=== PATIENT | female | born 1955 | race Caucasian/White ===

== ENCOUNTER 2019-01-31 09:00 | Inpatient (IN) | payer OTHER, SELFPAY ==
[2019-01-31] VITALS (11 sets, daily range): BP systolic 89–153; BP diastolic 47–82; PULSE 87–135; RESP 15–24; TEMP 36.6–38.2; O2SAT 86–98; BMI 30.7
--- NOTE | 2019-01-31 09:19 | ED_ITS ---
HPI - Fever General Chief Complaint: Fever Stated Complaint: left hip cellulitis/fever/pain x1 day Time Seen by Provider: 01/31/19 09:11 Source: patient Mode of arrival: Ambulatory Limitations: no limitations History of Present Illness HPI Narrative: Patient is a 64-year-old female here for evaluation which she thinks is cellulitis in her left hip. States she went to bed last evening without any symptoms. Woke up at about 0300 hours in the morning with pain and fevers. They did outline the redness with a marker. She woke up this morning and thought that the redness had spread. She did take a Tylenol at home in the evening. She does have penicillin at home. She has seen Infectious Disease in the past for recurrent cellulitis. She states it is normally not in this area but is more in her left leg. The penicillin was given to her by Infectious Disease because they ?like to travel ?and they wanted them to have medications to start in case symptoms like this happen. She has no hip pain. Does have a history of uterine cancer however has not had any treatment since 2012 and has been in remission. Earlier this year she had an ?ablation ?due to a ?leaky vein ?in her left leg. Related Data Home Medications Medication Instructions Recorded Confirmed omeprazole 20 mg PO QAM 01/31/19 01/31/19 penicillin V potassium 500 mg PO Q12H 01/31/19 01/31/19 Allergies Allergy/AdvReac Type Severity Reaction Status Date / Time adhesive tape Allergy Verified 01/31/19 09:09 Review of Systems Constitutional Constitutional: Reports fever(s) Cardiovascular Cardiovascular: Denies chest pain, Reports palpitations and Denies dyspnea Respiratory Respiratory: Denies dyspnea Gastrointestinal Gastrointestinal: Denies abdominal pain Musculoskeletal Musculoskeletal: Denies myalgias and Denies arthralgias Integumentary/Breasts Comments: Redness to left hip Neurologic Neurologic: Denies behavioral changes Psychiatric Psychiatric: Denies behavioral changes Endocrine Endocrine: Reports palpitations Hematologic/Lymphatic Hematologic/Lymphatic: Denies easy bleeding and Denies easy bruising Patient History Medical History (Updated 01/31/19 @ 10:42 by Jeremias Bella DO) Uterine cancer (Acute) Surgical History H/O bilateral oophorectomy (Acute) History of hysterectomy (Acute) Social History marital status: Exam Initial Vital Signs Initial Vital Signs: Vital Signs Temperature 100.7 F H 01/31/19 09:09 Pulse Rate 135 H 01/31/19 09:09 Respiratory Rate 20 01/31/19 09:09 Blood Pressure 153/82 H 01/31/19 09:09 Pulse Oximetry 97 01/31/19 09:09 Const General: cooperative, healthy appearing and comfortable HENMI Head: normal to inspection and normocephalic Resp Effort & Inspection: normal respiratory effort Auscultation: clear to auscultation bilaterally Cardio Rate: tachycardic Rhythm: regular rhythm GI Inspection: non-distended Palpation: soft Skin Other: Patient has a large area of redness in the fold of the pannus on the left lower abdomen. It does extend to the very superior portion of the left thigh. It does cross midline. Neuro General: alert and awake Cognition: normal cognition Speech: speech normal Extrem General: normal to inspection and capillary refill normal Psych Appearance: grossly normal and well kempt Course Orders Ordered: ED Orders 01/31/19 09:12 EKG-12 Lead Stat 01/31/19 09:30 Complete Blood Count AUTO DIFF Stat Comprehensive Metabolic Panel Stat Lactate (Lactic Acid) Stat Lipase Stat Procalcitonin Stat 01/31/19 09:50 Blood Culture Stat 01/31/19 11:00 CT abdomen pelvis w con Stat Discontinued Medications Acetaminophen (Tylenol) 650 mg PO NOW ONE Stop: 01/31/19 10:21 Last Admin: 01/31/19 10:22 Dose: 650 mg Documented by: MAAME Sodium Chloride (Normal Saline 0.9%) 1,000 mls @ 1,000 mls/hr IV BOLUS ONE Stop: 01/31/19 10:10 Last Infusion: 01/31/19 10:51 Dose: 1,000 mls/hr Documented by: Infusion: 01/31/19 09:45 Dose: 300 mls/hr Documented by: Admin: 01/31/19 09:44 Dose: 1,000 mls/hr Documented by: MAAME Vancomycin HCl (Vancomycin) 1,000 mg in 200 mls @ 200 mls/hr IV NOW ONE Stop: 01/31/19 10:41 Last Infusion: 01/31/19 10:49 Dose: 0 mls/hr Documented by: Admin: 01/31/19 09:46 Dose: 200 mls/hr Documented by: SCANAPO Vital Signs Vital signs: Vital Signs - 8 hr 01/31/19 09:09 01/31/19 10:14 01/31/19 10:35 Temperature 100.7 F H Pulse Rate 135 H 119 H 110 H Respiratory Rate 20 15 Blood Pressure 153/82 H Blood Pressure [Right Arm] 121/68 99/59 L Pulse Oximetry 97 95 93 MDM - Fever Lab Data Attestation: I reviewed the patient's lab results. Result diagrams: 01/31/19 09:30 01/31/19 09:30 Labs: Lab Results 01/31/19 01/31/19 01/31/19 Range/Units 09:30 09:30 09:30 WBC 13.1 H (4.5-11.0) X10^3/uL RBC 5.02 (4.0-5.2) X10^6/uL Hgb 15.1 (12.0-16.0) g/dL Hct 45.1 (36-46) % MCV 89.9 (80-100) fL MCH 30.1 (26-34) PG MCHC 33.4 (30-36) % RDW 13.8 (11.6-14.8) % Plt Count 192 (150-400) X10^3/uL Neut % (Auto) 94.8 H (50-75) % Lymph % (Auto) 2.5 L (25-40) % [place] % (Auto) 2.1 L (3-14) % Eos % (Auto) 0.2 L (2-4) % Baso % (Auto) 0.4 (0-2) % Neut # (Auto) 24161 H (3143-4347) /uL Lymph # (Auto) 300 L (5240-3904) /uL [place] # (Auto) 300 (0-900) /uL Eos # (Auto) 0 (0-450) /uL Baso # (Auto) 100 (0-100) /uL Sodium 139 (137-145) mmol/L Potassium 4.4 (3.4-5.1) mmol/L Chloride 101 (98-107) mmol/L Carbon Dioxide 25 (22-32) mmol/L BUN 19 H (7-17) mg/dL Creatinine 0.60 (0.52-1.04) mg/dL Estimated GFR > 60.0 (>60) mL/min BUN/Creatinine Ratio 31.7 H (6-22) Glucose 120 H (80-110) mg/dL Lactate (0.7-2.1) mmol/L Calcium 9.9 (8.4-10.2) mg/dL Total Bilirubin 0.7 (0.2-1.3) mg/dL AST 48 H (14-36) IU/L ALT 24 (9-52) IU/L Alkaline Phosphatase 85 (38-126) U/L Total Protein 8.0 (6.3-8.2) g/dL Albumin 4.6 (3.5-5.0) g/dL Globulin 3.4 (1.7-4.1) g/dL Albumin/Globulin Ratio 1.4 (1.0-2.8) Lipase 76 (23-300) U/L Procalcitonin 0.10 (<0.5) ng/mL 01/31/19 Range/Units 09:30 WBC (4.5-11.0) X10^3/uL RBC (4.0-5.2) X10^6/uL Hgb (12.0-16.0) g/dL Hct (36-46) % MCV (80-100) fL MCH (26-34) PG MCHC (30-36) % RDW (11.6-14.8) % Plt Count (150-400) X10^3/uL Neut % (Auto) (50-75) % Lymph % (Auto) (25-40) % [place] % (Auto) (3-14) % Eos % (Auto) (2-4) % Baso % (Auto) (0-2) % Neut # (Auto) (2325-2908) /uL Lymph # (Auto) (3851-2607) /uL [place] # (Auto) (0-900) /uL Eos # (Auto) (0-450) /uL Baso # (Auto) (0-100) /uL Sodium (137-145) mmol/L Potassium (3.4-5.1) mmol/L Chloride (98-107) mmol/L Carbon Dioxide (22-32) mmol/L BUN (7-17) mg/dL Creatinine (0.52-1.04) mg/dL Estimated GFR (>60) mL/min BUN/Creatinine Ratio (6-22) Glucose (80-110) mg/dL Lactate 3.3 H (0.7-2.1) mmol/L Calcium (8.4-10.2) mg/dL Total Bilirubin (0.2-1.3) mg/dL AST (14-36) IU/L ALT (9-52) IU/L Alkaline Phosphatase (38-126) U/L Total Protein (6.3-8.2) g/dL Albumin (3.5-5.0) g/dL Globulin (1.7-4.1) g/dL Albumin/Globulin Ratio (1.0-2.8) Lipase (23-300) U/L Procalcitonin (<0.5) ng/mL Imaging Data CT scan - abdomen: Radiologist's impression: [place] [address] CT Scan Report Signed Patient: Velma Clay EMR#: [id number] : 7Acct:[id number] Age/Sex: 64 / FDate of Service: 01/31/19 Loc: ED Accession Number: [id number] Procedure: CT abdomen pelvis w con Ordering Provider: Jeremias Bella D.O. PROCEDURE: CT ABDOMEN PELVIS W CON INDICATIONS: Left lower abdomen, rapidly progressing cellulitis evaluate for gas in the soft tissues. Clinically reported prior history of uterine carcinoma. TECHNIQUE: After the administration of intravenous contrast, 5 mm thick sections acquired from the diaphragm to the symphysis. 5 mm coronal and sagittal reformats were acquired. For radiation dose reduction, the following was used: automated exposure control, adjustment of mA and/or kV according to patient size. COMPARISON: None. FINDINGS: Image quality: Excellent. ABDOMEN: Lung bases: Lung bases are clear. Heart size is normal. No pulmonary masses found. Solid organs: Liver is normal in size and enhancement. Several scattered small hepatic cysts. No solid hepatic mass lesion found. Gallbladder appears normal. Biliary system is non dilated. Pancreas enhances normally. Spleen is normal in size and enhancement. No adrenal nodules. Kidneys demonstrate normal size and enhancement, without hydronephrosis. 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 Peritoneum and bowel: Bowel loops demonstrate normal wall thickness and caliber. No free fluid or air. Nodes and vessels: No retroperitoneal or mesenteric adenopathy by size criteria. Aorta and inferior vena cava are normal in size. Miscellaneous: No ventral hernias. PELVIS: Genitourinary: Bladder wall thickness is normal. Uterus and ovaries not visualized, several surgical clips noted right lower pelvis. Miscellaneous: No inguinal hernias or adenopathy. A small area of mural thickening is noted at the lower anterior pelvic ventral body wall at the midline. There is slightly greater cutaneous thickness on the left than the right superficial to the left hip area. No gas in the soft tissues is found. No underlying abscess is identified. Slight edema is seen within the fatty soft tissues superficial to the superficial muscular layer and bursal region of the left hip. No bursal inflammation or abnormal fluid seen. Bones: No suspicious bony lesions. No vertebral body compression fractures. IMPRESSION: Mild edema within the body wall of the anterior ventral and left hip region of the pelvis. No gas in the soft tissue seen. No deep abscess identified. Cellulitis is the presumed cause in this clinical circumstance. Through the lower chest, abdomen and pelvis no additional abnormality is seen that would indicate infection elsewhere. 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 Dictated by: Osorio Zamora M.D. on 01/31/2019 at 11:31 Approved by: Osorio Zamora M.D. on 01/31/2019 at 11:37 ECG Data Attestation: I personally reviewed and interpreted this ECG as follows: Prior ECG tracings: not available for review Interpretation: Sinus tachycardia Ventricular rate of 113 Normal axis Normal QRS Normal QTC No ST T wave changes MDM Narrative Medical decision making narrative: Patient does have left lower abdomen cellulitis. Does not have pain out of proportion. There is no crepitus to the area however it has extended outside the lines that she marked at approximately 0200 hours in the morning. She was tachycardic and febrile upon arrival. Has had these symptoms in the past. She was given vancomycin here in the ER. Blood cultures were obtained. CT scan was obtained to evaluate for free air in a evaluation for potential necrotizing fasciitis given the progression of the process. I do have low suspicion for this given her workup here in the ER. I did discuss the case with Dr. Rhodes who will admit for further evaluation treatment. Discussed the admission with the patient expressed understanding and agreement. Discharge Plan Departure Patient Disposition: Admitted As Inpatient Clinical Impression: Cellulitis Qualifiers: Site of cellulitis: unspecified site Qualified Code(s): L03.90 - Cellulitis, unspecified
[2019-01-31] MEDS: SODIUM CHLORIDE 0.9% 1,000 ML 1000 ML IV (09:44)
[2019-01-31] MEDS: VANCOMYCIN 1,000 MG/200 ML PIGGYBACK 200 MG IV (09:46)
[2019-01-31 09:49] LABS: Add Manual Diff / Slide Review NO; Basophils Absolute Auto 100 /uL (0-100); Basophils Percent Auto 0.4 % (0-2); Eosinophils Absolute Auto 0 /uL (0-450); Eosinophils Percent Auto 0.2 % (2-4); Hematocrit 45.1 % (36-46); Hemoglobin 15.1 g/dL (12.0-16.0); Lymphocytes Absolute Auto 300 /uL (1100-4500); Lymphocytes Percent Auto 2.5 % (25-40); Mean Corpuscular HGB Conc 33.4 % (30-36); Mean Corpuscular Hemoglobin 30.1 PG (26-34); Mean Corpuscular Volume 89.9 fL (80-100); Monocytes Absolute Auto 300 /uL (0-900); Monocytes Percent Auto 2.1 % (3-14); Neutrophils Absolute Auto 12500 /uL (1500-7000); Neutrophils Percent Auto 94.8 % (50-75); Platelet Count 192 X10^3/uL (150-400); Red Blood Cell Count 5.02 X10^6/uL (4.0-5.2); Red Cell Distribution Width 13.8 % (11.6-14.8); White Blood Cell Count 13.1 X10^3/uL (4.5-11.0)
[2019-01-31 10:04] LABS: Alanine Aminotransferase 24 IU/L (9-52); Albumin 4.6 g/dL (3.5-5.0); Albumin Globulin Ratio 1.4 (1.0-2.8); Alkaline Phosphatase 85 U/L (38-126); Aspartate Aminotransferase 48 IU/L (14-36); BUN Creatinine Ratio 31.7 (6-22); Bilirubin Total 0.7 mg/dL (0.2-1.3); Blood Urea Nitrogen 19 mg/dL (7-17); Calcium 9.9 mg/dL (8.4-10.2); Carbon Dioxide 25 mmol/L (22-32); Chloride 101 mmol/L (98-107); Estimated Glomerular Filt Rate > 60.0 mL/min (>60); Globulin 3.4 g/dL (1.7-4.1); Glucose 120 mg/dL (80-110); HEMOLYSIS 66 (0-50); Lipase 76 U/L (23-300); Potassium 4.4 mmol/L (3.4-5.1); Sodium 139 mmol/L (137-145)
[2019-01-31 10:07] LABS: Lactate (Lactic Acid) 3.3 mmol/L (0.7-2.1)
[2019-01-31] MEDS: ACETAMINOPHEN 325 MG TABLET 650 MG PO (10:22)
--- NOTE | 2019-01-31 11:00 | DI.CT.S_ITS ---
PROCEDURE: CT ABDOMEN PELVIS W CON INDICATIONS: Left lower abdomen, rapidly progressing cellulitis evaluate for gas in the soft tissues. Clinically reported prior history of uterine carcinoma. TECHNIQUE: After the administration of intravenous contrast, 5 mm thick sections acquired from the diaphragm to the symphysis. 5 mm coronal and sagittal reformats were acquired. For radiation dose reduction, the following was used: automated exposure control, adjustment of mA and/or kV according to patient size. COMPARISON: None. FINDINGS: Image quality: Excellent. ABDOMEN: Lung bases: Lung bases are clear. Heart size is normal. No pulmonary masses found. Solid organs: Liver is normal in size and enhancement. Several scattered small hepatic cysts. No solid hepatic mass lesion found. Gallbladder appears normal. Biliary system is non dilated. Pancreas enhances normally. Spleen is normal in size and enhancement. No adrenal nodules. Kidneys demonstrate normal size and enhancement, without hydronephrosis. 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 Peritoneum and bowel: Bowel loops demonstrate normal wall thickness and caliber. No free fluid or air. Nodes and vessels: No retroperitoneal or mesenteric adenopathy by size criteria. Aorta and inferior vena cava are normal in size. Miscellaneous: No ventral hernias. PELVIS: Genitourinary: Bladder wall thickness is normal. Uterus and ovaries not visualized, several surgical clips noted right lower pelvis. Miscellaneous: No inguinal hernias or adenopathy. A small area of mural thickening is noted at the lower anterior pelvic ventral body wall at the midline. There is slightly greater cutaneous thickness on the left than the right superficial to the left hip area. No gas in the soft tissues is found. No underlying abscess is identified. Slight edema is seen within the fatty soft tissues superficial to the superficial muscular layer and bursal region of the left hip. No bursal inflammation or abnormal fluid seen. Bones: No suspicious bony lesions. No vertebral body compression fractures. IMPRESSION: Mild edema within the body wall of the anterior ventral and left hip region of the pelvis. No gas in the soft tissue seen. No deep abscess identified. Cellulitis is the presumed cause in this clinical circumstance. Through the lower chest, abdomen and pelvis no additional abnormality is seen that would indicate infection elsewhere. 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 Dictated by: Osorio Zamora M.D. on 01/31/2019 at 11:31 Approved by: Osorio Zamora M.D. on 01/31/2019 at 11:37
[2019-01-31 11:44] LABS: Reflexed Lactate in 2 Hours Y
[2019-01-31 12:31] LABS: Lactate 2HR (Lactic Acid Rflx) 2.2 mmol/L (0.7-2.1)
[2019-01-31] MEDS: KETOROLAC 30 MG/ML VIAL IV (12:59)
--- NOTE | 2019-01-31 13:03 | RT ---
Patient placed on 2L NC. Oxygen level dropping to 86% on room air when sleeping.
--- NOTE | 2019-01-31 14:58 | PC.NURSE ---
1330 Pt arrived from ED , via stretcher. Pt is A,A,O x 4. Has sl to the L fa. Spouse at bedside. Pt noted to haved redened L thigh up to L side lower abd, Spouse outlined the area this am at home. 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 Pt states this is the 6th time for this same cellulitis.
--- NOTE | 2019-01-31 15:07 | P.HP_ITS ---
History of Present Illness History of Present Illness Date Patient Seen: 01/31/19 Chief complaint: left hip cellulitis/fever/pain x1 day Narrative: The patient is a 64-year-old female with a history of uterine cancer status post hysterectomy in 2011, GERD, laser surgery to the left lower e xtremity, chronic lymphedema, recurrent cellulitis who presents again for abrupt onset of cellulitis that started 1 day prior to admission. Patient reports she has had 6 episodes a cellulitis over the past 6 years. She typically gets 1 episode per year. She has been followed by infectious disease specialist at [facility]. After her last episode of cellulitis she was given a dose of penicillin to start at the onset of redness and suggestion of cellulitis patient stated she developed some redness along the abdomen last evening. She took 1 dose of cellulitis however this morning found that the redness had spread to her thigh from her abdomen. The patient reports fever to 104, headache, but no nausea vomiting or diarrhea. She was seen in the emergency department. She was found to have an elevated white count of 13, lactate acid elevated at 3.3 and a procalcitonin of 0.01. Patient is admitted to the hospital for treatment of recurrent cellulitis. Patient History Medical History (Updated 01/31/19 @ 15:16 by Jolanta Rhodes MD) Uterine cancer (Acute) Surgical History H/O bilateral oophorectomy (Acute) H/O parathyroidectomy (Acute) History of hysterectomy (Acute) Family History (Updated 01/31/19 @ 15:16 by Jolanta Rhodes MD) Father Diabetes mellitus Social History marital status: household members: spouse Smoking Status: Never smoker alcohol intake: current Family & Social History Family History (Updated 01/31/19 @ 15:16 by Jolanta Rhodes MD) Father Diabetes mellitus Social History: household members spouse Prior Living Arrangements House Safety & Behavioral: Feels Safe in Current Yes Environment Been Physically Hurt or No Threatened By a Person Suicidal Ideation Description None Suicide Plan Description No Plan Tobacco & Substance use: Smoking Status Never smoker alcohol intake current alcohol intake frequency a few times a week Substance Use Type does not use Meds Home Medications and Allergies Home Medications Medication Instructions Recorded Confirmed Type omeprazole 20 mg PO QAM 01/31/19 01/31/19 History penicillin V potassium 500 mg PO Q12H 01/31/19 01/31/19 History Allergies Allergy/AdvReac Type Severity Reaction Status Date / Time adhesive tape Allergy Verified 01/31/19 09:09 Review of Systems Review of Systems ROS Unobtainable: All systems reviewed & are unremarkable except as noted in HPI and below Exam Vital Signs (past 8 hours): - 01/31/19 09:09 01/31/19 10:14 01/31/19 10:35 Temperature 100.7 F H Pulse Rate 135 H 119 H 110 H Respiratory Rate 20 15 Blood Pressure 153/82 H Blood Pressure [Right Arm] 121/68 99/59 L Pulse Oximetry 97 95 93 01/31/19 11:45 01/31/19 12:00 01/31/19 12:29 Temperature 99.3 F Pulse Rate 104 H 99 H Respiratory Rate 19 24 Blood Pressure Blood Pressure [Right Arm] 89/47 L 93/51 L Pulse Oximetry 93 93 01/31/19 12:52 01/31/19 13:02 Temperature Pulse Rate 97 H Respiratory Rate 16 Blood Pressure Blood Pressure [Right Arm] 94/57 L Pulse Oximetry 94 86 L Oxygen Delivery Method Room Air Narrative Exam Narrative: Pleasant female resting comfortably in no obvious distress HEENT: Normocephalic atraumatic, extraocular muscles are intact, oropharynx is clear, there are moist mucous membranes, neck is supple, there is no adenopathy, no thyromegaly, there is a well-healed parathyroid to ectomy scar. Lungs: Clear to auscultation, no rhonchi crackles or wheezes Cardiac exam: Tachycardic, normal S1-S2, no murmurs rubs or gallops Abdomen: Soft nontender nondistended, no hepatosplenomegaly, will healed surgical suprapubic incision, no board-like rigidity, normoactive bowel tones Extremities: No clubbing cyanosis or edema Skin exam: Erythema along the abdomen and left flank, there is redness along the suprapubic area, there is lytes scant redness going down the left anterior thigh, there is no fluctuance there are no palpable masses, there is no evidence of fluid collections, there is no ulcerations, there are no streaking noted Neuro exam nonfocal Objective Labs Result Diagrams: 01/31/19 09:30 01/31/19 09:30 Labs: Laboratory Results - last 24 hr 01/31/19 01/31/19 01/31/19 09:30 09:30 09:30 WBC 13.1 H RBC 5.02 Hgb 15.1 Hct 45.1 MCV 89.9 MCH 30.1 MCHC 33.4 RDW 13.8 Plt Count 192 Neut % (Auto) 94.8 H Lymph % (Auto) 2.5 L [place] % (Auto) 2.1 L Eos % (Auto) 0.2 L Baso % (Auto) 0.4 Neut # (Auto) 37420 H Lymph # (Auto) 300 L [place] # (Auto) 300 Eos # (Auto) 0 Baso # (Auto) 100 Sodium 139 Potassium 4.4 Chloride 101 Carbon Dioxide 25 BUN 19 H Creatinine 0.60 Estimated GFR > 60.0 BUN/Creatinine Ratio 31.7 H Glucose 120 H Lactate Calcium 9.9 Total Bilirubin 0.7 AST 48 H ALT 24 Alkaline Phosphatase 85 Total Protein 8.0 Albumin 4.6 Globulin 3.4 Albumin/Globulin Ratio 1.4 Lipase 76 Procalcitonin 0.10 01/31/19 01/31/19 09:30 11:55 WBC RBC Hgb Hct MCV MCH MCHC RDW Plt Count Neut % (Auto) Lymph % (Auto) [place] % (Auto) Eos % (Auto) Baso % (Auto) Neut # (Auto) Lymph # (Auto) [place] # (Auto) Eos # (Auto) Baso # (Auto) Sodium Potassium Chloride Carbon Dioxide BUN Creatinine Estimated GFR BUN/Creatinine Ratio Glucose Lactate 3.3 H 2.2 H Calcium Total Bilirubin AST ALT Alkaline Phosphatase Total Protein Albumin Globulin Albumin/Globulin Ratio Lipase Procalcitonin Assessment & Plan Assessment & Plan narrative: Impression 1. Severe sepsis, manifested as elevated white count, tachycardia, hypoxemia, elevated lactate, and skin infection. The patient has had recurrent episodes at least 6 of cellulitis typically involving her left lower extremity. She now has cellulitis of the abdomen progressing to the left thigh. The patient took 1 dose of penicillin at home with spreading of the infection. She was started on IV Vanco in the emergency department. Ceftriaxone will be added to the regimen. The patient is on oxygen as she was hypoxic in the emergency department. Will continue her oxygen and obtain a chest x-ray to rule out possible infiltrate. Awaiting procalcitonin. Will repeat lactate. Will continue IV antibiotics. 2. GERD, present on admission, continue omeprazole 3. History of uterine cancer, status post surgery, and a This is chronic. Patient is a full code, will note that her record accordingly Quality VTE Deep Vein Thrombosis/Pulmonary Embolism Present on Admission: No
[2019-01-31] MEDS: CEFTRIAXONE 2 GM/50 ML FROZ.PIGGY IV (16:13)
[2019-01-31 16:56] LABS: Lactate (Lactic Acid) 2.3 mmol/L (0.7-2.1)
[2019-01-31 17:39] LABS: Add Manual Diff / Slide Review NO; Basophils Absolute Auto 0 /uL (0-100); Basophils Percent Auto 0.2 % (0-2); Eosinophils Absolute Auto 0 /uL (0-450); Hematocrit 41.5 % (36-46); Hemoglobin 13.8 g/dL (12.0-16.0); Lymphocytes Absolute Auto 500 /uL (1100-4500); Lymphocytes Percent Auto 2.5 % (25-40); Mean Corpuscular HGB Conc 33.3 % (30-36); Mean Corpuscular Volume 89.8 fL (80-100); Monocytes Absolute Auto 600 /uL (0-900); Monocytes Percent Auto 2.9 % (3-14); Neutrophils Absolute Auto 20400 /uL (1500-7000); Neutrophils Percent Auto 94.4 % (50-75); Platelet Count 184 X10^3/uL (150-400); Red Blood Cell Count 4.62 X10^6/uL (4.0-5.2); Red Cell Distribution Width 13.9 % (11.6-14.8); White Blood Cell Count 21.6 X10^3/uL (4.5-11.0)
[2019-01-31 17:46] LABS: BUN Creatinine Ratio 27.1 (6-22); Blood Urea Nitrogen 19 mg/dL (7-17); Calcium 8.8 mg/dL (8.4-10.2); Carbon Dioxide 24 mmol/L (22-32); Chloride 100 mmol/L (98-107); Estimated Glomerular Filt Rate > 60.0 mL/min (>60); Glucose 116 mg/dL (80-110); HEMOLYSIS < 15 (0-50); Potassium 4.1 mmol/L (3.4-5.1); Sodium 136 mmol/L (137-145)
[2019-01-31 18:41] LABS: Reflexed Lactate in 2 Hours Y
[2019-01-31] MEDS: IBUPROFEN 600 MG TABLET PO (18:58)
[2019-01-31 19:13] LABS: Lactate 2HR (Lactic Acid Rflx) 1.8 mmol/L (0.7-2.1)
[2019-01-31] MEDS: VANCOMYCIN 1,500 MG/300 ML FROZ.PIGGY 200 MG IV (21:42)
[2019-02-01] VITALS (12 sets, daily range): BP systolic 94–134; BP diastolic 53–74; PULSE 62–83; RESP 12–16; TEMP 36.8–38.2; O2SAT 92–100
[2019-02-01] MEDS: ACETAMINOPHEN 325 MG TABLET 650 MG PO ×2 (03:38→18:33)
[2019-02-01] MEDS: PANTOPRAZOLE 20 MG TABLET PO (06:00)
[2019-02-01] MEDS: IBUPROFEN 600 MG TABLET PO ×2 (06:00→20:31)
[2019-02-01 06:54] LABS: Procalcitonin 7.43 ng/mL (<0.5)
[2019-02-01] MEDS: DOCUSATE 100 MG CAPSULE PO ×2 (08:27→20:29)
[2019-02-01] MEDS: ENOXAPARIN 40 MG/0.4 ML SYRINGE SUBCUT (08:27)
[2019-02-01] MEDS: VANCOMYCIN 1,500 MG/300 ML FROZ.PIGGY 200 MG IV ×2 (08:27→20:37)
--- NOTE | 2019-02-01 09:01 | PC.NURSE ---
Late entry. Pt arrived via ED accompanied by to room 205 at 13:30. Pt was settled to bed, instructed on phone room and call light. VSS. Left groin was examined and during report to [place] discussed taking photos of area had marked. Pt up to BR with CARLOS ALBERTO CASTELLANOS. Pt offers no c/o at present.
[2019-02-01 09:41] LABS: Add Manual Diff / Slide Review NO; Basophils Absolute Auto 0 /uL (0-100); Basophils Percent Auto 0.4 % (0-2); Eosinophils Absolute Auto 0 /uL (0-450); Eosinophils Percent Auto 0.1 % (2-4); Hematocrit 40.8 % (36-46); Hemoglobin 13.6 g/dL (12.0-16.0); Lymphocytes Absolute Auto 500 /uL (1100-4500); Lymphocytes Percent Auto 4.4 % (25-40); Mean Corpuscular HGB Conc 33.4 % (30-36); Mean Corpuscular Hemoglobin 30.2 PG (26-34); Mean Corpuscular Volume 90.4 fL (80-100); Monocytes Absolute Auto 300 /uL (0-900); Neutrophils Absolute Auto 10100 /uL (1500-7000); Neutrophils Percent Auto 92.1 % (50-75); Platelet Count 173 X10^3/uL (150-400); Red Blood Cell Count 4.51 X10^6/uL (4.0-5.2); Red Cell Distribution Width 14.1 % (11.6-14.8); White Blood Cell Count 10.9 X10^3/uL (4.5-11.0)
[2019-02-01 09:56] LABS: Blood Urea Nitrogen 14 mg/dL (7-17); Carbon Dioxide 24 mmol/L (22-32); Chloride 103 mmol/L (98-107); Estimated Glomerular Filt Rate > 60.0 mL/min (>60); Glucose 99 mg/dL (80-110); HEMOLYSIS < 15 (0-50); Potassium 3.6 mmol/L (3.4-5.1); Sodium 135 mmol/L (137-145)
[2019-02-01 10:19] LABS: Procalcitonin 7.54 ng/mL (<0.5)
--- NOTE | 2019-02-01 11:04 | CM.DANOTE ---
DCP: Case received, EMR reviewed and met with patient. Introduced self and role. Was able to meet with patient to obtain baseline health and activity level. DCP assessment/template, completed with information currently available. Patient is a 64 year old female who admitted yesterday morning to the care of the hospitalist team. PCP: Dr. Chavira, at [facility]. Payer: confirmed: [facility]. Patient came to the hospital via family vehicle secondary to redness to her left hip. Patient holds diagnosis of cellulitis, which is recurrent. Met with patient in her room, and confirmed that she has had this history. She stated that this started in 2012, when she was getting her chemotherapy. Verified that she is seeing an infectious control physician at [facility], and was given some pennicillin to take prophalactly. She is here receiving IV antibiotics. Patient is alert and oriented, pleasant, and independent. She resides in [place] with her spouse Derek. She is familiar with the signs and symptoms of cellulitis, and is educated regarding this. She is hopeful that she can go home on oral antibiotics. P: DCP to follow closely as plan unfolds, and note how long that she will need to be on IV antibiotics, versus oral. Ivon Flores RN/Database Design Analyst
--- NOTE | 2019-02-01 14:36 | P.PN_ITS ---
Subjective Subjective Date Patient Seen: 02/01/19 Interval history: The patient is a 64-year-old female admitted to the hospital for recurrent cellulitis. Patient has had 5 episodes of cellulitis in the past. It is typically restricted to the left lower extremity with spread across her a bdomen. The patient was given prophylactic penicillin to take in the event she develops cellulitis as an outpatient. She took 1 dose however the area increased in size in terms of redness across the abdomen and left thigh. Overnight she has had no more fevers. It she denies any pain. She has no diarrhea. She feels that the redness on her abdomen is improving. Exam Vital Signs (past 8 hours): - 02/01/19 07:00 02/01/19 08:00 02/01/19 09:28 Temperature 98.6 F Pulse Rate 77 Respiratory Rate 13 Blood Pressure 103/55 L Pulse Oximetry 95 92 93 02/01/19 14:00 Temperature 98.9 F Pulse Rate 73 Respiratory Rate 12 Blood Pressure 96/61 Pulse Oximetry 93 Oxygen Delivery Method Room Air Oxygen Flow Rate 0 Narrative Exam Narrative: Pleasant female in no acute distress Lungs: Clear to auscultation Cardiac exam: Regular rate and rhythm normal S1-S2 Abdomen: Soft nontender nondistended Extremities: No edema Skin exam: Abdominal erythema decreasing across the abdomen and suprapubic area. Decreased erythema along the left anterior thigh. There is no warmth or fluctuance noted. Objective Labs Result Diagrams: 02/01/19 08:20 02/01/19 08:20 Labs: Laboratory Results - last 24 hr 01/31/19 01/31/19 01/31/19 16:35 17:25 17:25 WBC 21.6 H D RBC 4.62 Hgb 13.8 Hct 41.5 MCV 89.8 MCH 30.0 MCHC 33.3 RDW 13.9 Plt Count 184 Neut % (Auto) 94.4 H Lymph % (Auto) 2.5 L [place] % (Auto) 2.9 L Eos % (Auto) 0.0 L Baso % (Auto) 0.2 Neut # (Auto) 87204 H Lymph # (Auto) 500 L [place] # (Auto) 600 Eos # (Auto) 0 Baso # (Auto) 0 Sodium 136 L Potassium 4.1 Chloride 100 Carbon Dioxide 24 BUN 19 H Creatinine 0.70 Estimated GFR > 60.0 BUN/Creatinine Ratio 27.1 H Glucose 116 H Lactate 2.3 H Calcium 8.8 Procalcitonin 01/31/19 02/01/19 02/01/19 18:57 06:00 08:20 WBC 10.9 RBC 4.51 Hgb 13.6 Hct 40.8 MCV 90.4 MCH 30.2 MCHC 33.4 RDW 14.1 Plt Count 173 Neut % (Auto) 92.1 H Lymph % (Auto) 4.4 L [place] % (Auto) 3.0 Eos % (Auto) 0.1 L Baso % (Auto) 0.4 Neut # (Auto) 19054 H Lymph # (Auto) 500 L [place] # (Auto) 300 Eos # (Auto) 0 Baso # (Auto) 0 Sodium Potassium Chloride Carbon Dioxide BUN Creatinine Estimated GFR BUN/Creatinine Ratio Glucose Lactate 1.8 Calcium Procalcitonin 7.43 H 02/01/19 02/01/19 08:20 08:20 WBC RBC Hgb Hct MCV MCH MCHC RDW Plt Count Neut % (Auto) Lymph % (Auto) Cascade % (Auto) Eos % (Auto) Baso % (Auto) Neut # (Auto) Lymph # (Auto) Cascade # (Auto) Eos # (Auto) Baso # (Auto) Sodium 135 L Potassium 3.6 Chloride 103 Carbon Dioxide 24 BUN 14 Creatinine 0.50 L Estimated GFR > 60.0 BUN/Creatinine Ratio 28.0 H Glucose 99 Lactate Calcium 9.0 Procalcitonin 7.54 H Assessment & Plan Assessment & Plan narrative: Impression 1. 64-year-old female admitted to the hospital with recurrent cellulitis. She is making significant improvement on her current antibiotic regimen. Suspect this strep or staph infection. Will continue the antibiotics. Id the patient is able to tolerate oral intake and will Hep-Lock her IV fluids. She does not have significant pain. 2. GERD continue PPI Plan home in 1-2 days pending clinical course. Quality VTE Deep Vein Thrombosis/Pulmonary Embolism Present on Admission: No
[2019-02-01] MEDS: CEFTRIAXONE 2 GM/50 ML FROZ.PIGGY IV (15:23)
--- NOTE | 2019-02-01 18:51 | PC.NURSE ---
Addendum entered by Cherry Vaughan R.N. 02/01/19 20:33: Pt had relatively uneventful evening. Med at 1900 w/tylenol for H/A w/minimal relief. Med w/ibuprofen at 2012. will assess. HL intact?sylvia. Original Note: Pt resting quietly at intervals . HL LFA intact/patent. Left thigh, lower abdomen, light pink Denies itching. Lungs clear, SpO2 98% RA Call light w/in reach, bed alrm on for pt safety.
[2019-02-02] VITALS (8 sets, daily range): BP systolic 100–139; BP diastolic 65–74; PULSE 64–74; RESP 16–17; TEMP 36.3–37.3; O2SAT 94–97
--- NOTE | 2019-02-02 01:38 | PC.NURSE ---
Addendum entered by Faye Martinez R.N. 02/02/19 06:22: States she slept at intervals. Denies pain but does state she is a little bit itchy but declines need for Benadryl. BP better this morning at 106/67. Original Note: 0000 Patient is alert and oriented. Breath sounds CTA with RA sat of 92%; on continuous oximetry. HRR. BP low at 94/53 but does tend to run low and is asymptomatic. Denies nausea. BT present and abdomen is soft. Is able to turn self in bed. Steady on feet and is up to bathroom independently; instructed to call for assistance if experiencing and dizziness or lightheadedness when getting up and she verbalizes understanding/agreement. Denies pain. Light pink area on abdomen but well within previously drawn markings. Chronic bilateral LE lymphedema left > right and has tingling in toes related to hx of chemo. Fall risk score is moderate.
[2019-02-02 09:01] LABS: Vancomycin Trough 12.9 ug/mL (10-20)
[2019-02-02 09:21] LABS: Procalcitonin 3.97 ng/mL (<0.5)
[2019-02-02] MEDS: VANCOMYCIN TROUGH 1 REQUEST MISC (10:13)
[2019-02-02] MEDS: SODIUM CHLORIDE 0.9% FLUSH 10 ML IV ×3 (10:16→21:01)
[2019-02-02] MEDS: DOCUSATE 100 MG CAPSULE PO ×2 (10:16→21:00)
[2019-02-02] MEDS: ENOXAPARIN 40 MG/0.4 ML SYRINGE SUBCUT (10:16)
[2019-02-02] MEDS: PANTOPRAZOLE 20 MG TABLET PO (10:17)
--- NOTE | 2019-02-02 14:42 | P.PN_ITS ---
Subjective Subjective Date Patient Seen: 02/02/19 Interval history: Patient is a 64-year-old female admitted to the hospital for a cellulitis involving the abdominal wall and left thigh. Patient has had sips 6 episodes of cellulitis. She has responded nicely to IV antibiotics. She has h ad some low-grade fever and shaking chills overnight. Exam Vital Signs (past 8 hours): - 02/02/19 08:28 02/02/19 09:30 02/02/19 11:30 Temperature 98.7 F 98.3 F Pulse Rate 74 64 Respiratory Rate 16 16 Blood Pressure 106/71 100/65 Pulse Oximetry 94 94 97 Oxygen Delivery Method Room Air Oxygen Flow Rate 0 Objective Labs Result Diagrams: 02/01/19 08:20 02/01/19 08:20 Labs: Laboratory Results - last 24 hr 02/02/19 02/02/19 08:25 08:25 Procalcitonin 3.97 H Vancomycin Trough 12.9 Assessment & Plan Assessment & Plan narrative: Impression 1. Cellulitis involving the am abdominal wall and left thigh. Overall improving. The patient still is having low-grade fevers to 100.8. Her procalcitonin has improved significantly but is still elevated at 3.97. Given the patient's recurrent episodes of at least 5 periods of cellulitis will continue IV antibiotics 1 additional day. Her vancomycin has been discontinued. Patient will continue on ceftriaxone. Anticipate discharge home tomorrow on an oral antibiotic. 2. GERD continue omeprazole Quality VTE Deep Vein Thrombosis/Pulmonary Embolism Present on Admission: No
[2019-02-02] MEDS: CEFTRIAXONE 2 GM/50 ML FROZ.PIGGY IV (15:55)
--- NOTE | 2019-02-02 23:46 | PC.NURSE ---
Addendum entered by Faye Martinez R.N. 02/03/19 05:27: Slept at intervals. VS stable. Denies pain. Hoping to discharge today. Original Note: Alert and oriented. Breath sounds CTA with RA sat of 96%. HRR. Denies nausea. BT present and had BM earlier today. Denies dysuria, frequency or urgency. Independent with mobility and is steady on feet. Skin left abdomen is still lightly pink; denies pain but does have some itching but declines need for antihistamine. Chronic bilateral LE lymphedema left > right. Chronic tingling toes bilaterally related to hx chemo. Fall risk score is moderate; bed alarm not needed at this time as patient steady and oriented.
[2019-02-03 05:00] VITALS: BP 103/62; PULSE 57; RESP 16; TEMP 37.2; O2SAT 93
[2019-02-03] MEDS: PANTOPRAZOLE 20 MG TABLET PO (05:26)
[2019-02-03 05:59] LABS: Add Manual Diff / Slide Review NO; Basophils Absolute Auto 0 /uL (0-100); Basophils Percent Auto 0.9 % (0-2); Eosinophils Absolute Auto 100 /uL (0-450); Eosinophils Percent Auto 1.3 % (2-4); Hematocrit 39.3 % (36-46); Hemoglobin 13.4 g/dL (12.0-16.0); Lymphocytes Absolute Auto 1100 /uL (1100-4500); Mean Corpuscular Hemoglobin 30.2 PG (26-34); Mean Corpuscular Volume 88.8 fL (80-100); Monocytes Absolute Auto 400 /uL (0-900); Monocytes Percent Auto 10.7 % (3-14); Neutrophils Absolute Auto 2500 /uL (1500-7000); Neutrophils Percent Auto 60.1 % (50-75); Platelet Count 150 X10^3/uL (150-400); Red Blood Cell Count 4.42 X10^6/uL (4.0-5.2); Red Cell Distribution Width 13.9 % (11.6-14.8); White Blood Cell Count 4.2 X10^3/uL (4.5-11.0)
[2019-02-03 06:42] LABS: Procalcitonin 2.58 ng/mL (<0.5)
[2019-02-03 07:30] VITALS: O2SAT 95
[2019-02-03 07:48] VITALS: BP 118/77; PULSE 62; RESP 16; TEMP 36.6; O2SAT 95
[2019-02-03] MEDS: ENOXAPARIN 40 MG/0.4 ML SYRINGE SUBCUT (08:05)
[2019-02-03] MEDS: SODIUM CHLORIDE 0.9% FLUSH 10 ML IV (08:05)
[2019-02-03] MEDS: DOCUSATE 100 MG CAPSULE PO (08:05)
--- NOTE | 2019-02-03 10:40 | PM.DS.1 ---
History of Present Illness History of Present Illness Date Patient Seen: 02/03/19 Time Patient Seen: 11:40 Chief complaint: left hip cellulitis/fever/pain x1 day Narrative: The patient is a 64-year-old female with a history of uterine cancer status post hysterectomy in 2011, GERD, laser surgery to the left lower extremity, chronic lymphedema, recurrent cellulitis who presents again for abrupt onset of cellulitis that started 1 day prior to admission. Patient reports she has had 6 episodes a cellulitis over the past 6 years. She typically gets 1 episode per year. She has been followed by infectious disease specialist at [facility]. After her last episode of cellulitis she was given a dose of penicillin to start at the onset of redness and suggestion of cellulitis patient stated she developed some redness along the abdomen last evening. She took 1 dose of cellulitis however this morning found that the redness had spread to her thigh from her abdomen. The patient reports fever to 104, headache, but no nausea vomiting or diarrhea. She was seen in the emergency department. She was found to have an elevated white count of 13, lactate acid elevated at 3.3 and a procalcitonin of 0.01. Patient is admitted to the hospital for treatment of recurrent cellulitis. Discharge Providers Provider Date of admission: 01/31/19 11:49 Discharge Date: 02/03/19 Discharge provider: Jesús Salazar MD Summary Hospital Course Discharge Diagnosis: 1. Cellulitis involving the am abdominal wall and left thigh. 2. GERD continue omeprazole Hospital Course: 1. Cellulitis involving the Left lower abdominal wall and left thigh. Today she is doing much better with just slight pink discoloration at the center of the previously large area of cellulitis. Her procalcitonin has dropped all the way from 7.43 down to 2.58. The vancomycin was stopped yesterday and she has continued on ceftriaxone until today. The cellulitis is caused by chronic left lower extremity lymphedema from her prior uterine cancer treatment. She will be following up with Dr. Chavira at [facility]. She will be on cefuroxime for 1 more week. 2. GERD continue omeprazole Status at Discharge Cognitive/behavioral status at discharge: oriented Functional status at discharge: independent ambulation Overall status at discharge: patient is back to baseline Time Spent with Patient Time spent: Less than 30 minutes Exam Vital Signs (past 8 hours): - 02/03/19 05:00 02/03/19 07:48 Temperature 98.9 F 97.8 F Pulse Rate 57 L 62 Respiratory Rate 16 16 Blood Pressure 103/62 118/77 Pulse Oximetry 93 95 Oxygen Delivery Method Room Air Oxygen Flow Rate 0 Narrative Exam Narrative: She is alert and oriented x3, in no apparent distress. Heart is regular rate and rhythm without murmur. Lungs are clear to auscultation bilaterally. There is chronic left lower extremity lymphedema, none on the right. There is no redness of the leg. There is a very small pink patch at the center of the left pelvis where her cellulitis had been most intense. This is not tender or warm. Objective Labs Result Diagrams: 02/03/19 05:35 02/01/19 08:20 Labs: Laboratory Results - last 24 hr 02/03/19 02/03/19 05:35 05:35 WBC 4.2 L D RBC 4.42 Hgb 13.4 Hct 39.3 MCV 88.8 MCH 30.2 MCHC 34.0 RDW 13.9 Plt Count 150 Neut % (Auto) 60.1 D Lymph % (Auto) 27.[address] [place] % (Auto) 10.7 Eos % (Auto) 1.3 L Baso % (Auto) 0.9 Neut # (Auto) 2500 Lymph # (Auto) 1100 [place] # (Auto) 400 Eos # (Auto) 100 Baso # (Auto) 0 Procalcitonin 2.58 H Discharge Plan Discharge Plan Patient Disposition: Home Discharge comment: Follow up with Dr. Person at [facility] in one week. Discharge Med Rec/Prescriptions Prescriptions: New cefuroxime axetil 500 mg tablet 500 mg PO BID Qty: 14 RF: 0 Continued omeprazole 20 mg capsule,delayed release(DR/EC) 20 mg PO QAM RF: 0 Discontinued penicillin V potassium 500 mg tablet 500 mg PO Q12H RF: 0 Visit Report/Discharge Packet Instructions: Cefuroxime (By mouth) Discharges patient from system. Discharge Date/Time: 02/03/19 12:25 Quality VTE Deep Vein Thrombosis/Pulmonary Embolism Present on Admission: No
--- NOTE | 2019-02-03 12:22 | PC.NURSE ---
Pt dressed and ready for discharge home with Spouse. Went over d/c instructions with Pt and spouse-discussed d/c meds, time of last dose, recommended Pt see her Physician right away if redness returns or gets worse. Reviewed stroke education. Pt denies further questions and was taken out via w/c by [facility] to POV with Spouse and all belongings.
== END 2019-02-03 12:25 | disposition home or self-care (01) | DRG 603 ==
LOC: ED 11:46 → AC 11:50
PROVIDERS: Admitting Provider Internal Medicine; Emergency Provider Emergency Medicine; Visit Provider Internal Medicine
DX: L03.311 Cellulitis of abdominal wall (principal); L03.116 Cellulitis of left lower limb; R09.02 Hypoxemia; K21.9 Gastro-esophageal reflux disease without esophagitis; I89.0 Lymphedema, not elsewhere classified; Z85.42 Personal history of malignant neoplasm of other parts of uterus
CPT/HCPCS: 36415; 74177; 80048; 80053; 80202; 83605; 83690; 84145; 85025; 87040; 93005; 94762; 96361; 96365; 96366; 96367; 96372; 96375; 99284; 99285; J0696; J1650; J1885; Q9967

== ENCOUNTER 2020-05-05 13:38 | Observation (INO) | payer OTHER, SELFPAY ==
[2019-01-31 14:47] VITALS: BMI 30.7
[2020-05-05] VITALS (29 sets, daily range): BP systolic 79–159; BP diastolic 49–102; PULSE 50–80; RESP 10–40; TEMP 36.1–37.1; O2SAT 93–100; BMI 32.4
--- NOTE | 2020-05-05 | DI.ECHO.S_ITS ---
[facility] +---------+ : : [address] : : : : [id number] : : : : Phone: [phone]+ Echocardiogram Report + + :Name: CARLOS MANUEL RENEE Study Date: 05/06/2020 Height: 65 in : :[facility] ReadingLocation: Weight: 195 lb : : Gender: Female BSA: 2.0 m2 : :: 1955 Age: 65 yrs BP: 157/97 mmHg: :Reason For Study: CHEST PAIN : :Ordering Physician: Aylin DIASformed By: Herminia Chacko : :Referring: AMANDA DIAS : + + Interpretation Summary Normal echo study. Procedure: A two-dimensional transthoracic echocardiogram with color flow and Doppler was performed. The study quality was technically adequate. There is no prior echocardiogram noted for this patient. The patient was in sinus rhythm with heart rates between 57-68 bpm during the exam. Left Ventricle: The left ventricle is normal in size and wall thickness. The ejection fraction is estimated to be 60-65%. Left ventricular wall motion is normal. Diastolic parameters suggest probable normal left ventricular diastolic function and normal filling pressures. Right Ventricle: The right ventricle is normal in size and function. Atria: Both atria are normal in size. There is no Doppler evidence for an interatrial shunt. Mitral Valve: The mitral valve is normal in structure and function. There is trace mitral regurgitation. Aortic Valve: The aortic valve is trileaflet. The aortic valve opens well. There is no aortic valve stenosis. No aortic regurgitation is present. Tricuspid Valve: The tricuspid valve is normal in structure and function. There is trace tricuspid regurgitation. Pulmonary artery pressures cannot be estimated because of the lack of a measurable TR jet velocity but the IVC suggests a CVP of around 3 mmHg. Pulmonic Valve: The pulmonic valve is not well visualized. The pulmonic valve is not well seen, but is grossly normal. There is no pulmonic valvular regurgitation. Great Vessels: The aortic root is normal size. The dimensions of the ascending aorta are normal. The IVC is of normal diameter and collapses greater than 50% with a sniff. This suggests a low right atrial pressure of 3 mm Hg. Pericardium/ Pleura There is no pericardial effusion. There is no pleural effusion. MMode/2D Measurements & Calculations LVIDd: 5.7 cm LVOT diam: 2.1 cm LVIDs: 3.7 cm Ao root diam: 2.8 cm FS: 35.7 % asc Aorta Diam: 2.7 cm EPSS: 0.45 cm Ao Arch Diam (Prox Trans): 2.5 cm IVSd: 0.76 cm LVPWd: 0.74 cm LV adkins. diameter/BSA (cm/m^2): 2.9 LV sys. diameter/BSA (cm/m^2): 1.9 LA A2 area: 17.0 cm2 RA long axis: 4.7 cm LA A4 area: 15.6 cm2 RA area: 15.9 cm2 LA length (vol): 4.3 cm RA vol: 45.5 ml LA vol: 52.0 ml RA : 23.3 ml/m2 LA vol index: 26.6 ml/m2 IVC diam: 1.2 cm RVD1 (basal): 3.2 cm TAPSE: 2.3 cm Doppler Measurements & Calculations Ao V2 max: 136.6 cm/sec LVOT Max Anders: 90.4 cm/sec Ao V2 mean: 97.5 cm/sec LV V1 max P.3 mmHg Ao max P.5 mmHg LV V1 VTI: 22.1 cm Ao mean P.2 mmHg LEILA(I,D): 2.3 cm2 Ao V2 VTI: 33.0 cm LEILA(V,D): 2.2 cm2 sev ratio: 0.67 LEILA indexed to BSA (cm^2/m^2): 1.2 MV E max anders: 82.5 cm/sec PA V2 max: 50.7 cm/sec MV A max anders: 86.5 cm/sec PA V2 mean: 34.8 cm/sec MV E/A: 0.95 PA mean P.56 mmHg Med Peak E' Anders: 8.8 cm/sec PA pr(Accel): 8.8 mmHg E/E' med: 9.4 Lat Peak E' Anders: 11.7 cm/sec E/E' lat: 7.1 E/e' average: 8.2 MV dec time: 0.18 sec SV(LVOT): 75.0 ml Electronically signed by: Candy Addison on Reading Physician:05/06/2020 12:15 PM
--- NOTE | 2020-05-05 13:51 | DI.RAD.S_ITS ---
PROCEDURE: XR CHEST 1V INDICATIONS: chest pain TECHNIQUE: One view of the chest was acquired. COMPARISON: [facility], CT, CT ABDOMEN PELVIS W CON, 01/31/2019, 10:58. FINDINGS: Surgical changes and devices: None. Lungs and pleura: An incomplete inspiratory result is noted, causing a crowded appearance to the lung markings. No focal infiltrates are seen. No pneumothorax or significant pleural effusions are seen. Mediastinum: Mediastinal contours appear normal. Heart size is normal. Bones and chest wall: No suspicious bony lesions. Age-appropriate bony degenerative changes are seen. Overlying soft tissues appear unremarkable. IMPRESSION: Limited portable chest examination, without a significant cardiopulmonary abnormality identified. Dictated by: Du Darnell M.D. on 05/05/2020 at 13:20 Approved by: Du Darnell M.D. on 05/05/2020 at 13:21
[2020-05-05 14:19] LABS: Add Manual Diff / Slide Review NO; Basophils Absolute Auto 100 /uL (0-100); Basophils Percent Auto 0.8 % (0-2); Eosinophils Absolute Auto 100 /uL (0-450); Eosinophils Percent Auto 1.3 % (2-4); Hematocrit 43.1 % (36-46); Hemoglobin 14.6 g/dL (12.0-16.0); Lymphocytes Absolute Auto 1600 /uL (1100-4500); Lymphocytes Percent Auto 22.7 % (25-40); Mean Corpuscular HGB Conc 33.9 % (30-36); Mean Corpuscular Hemoglobin 30.9 PG (26-34); Mean Corpuscular Volume 91.1 fL (80-100); Monocytes Absolute Auto 500 /uL (0-900); Monocytes Percent Auto 7.3 % (3-14); Neutrophils Absolute Auto 4800 /uL (1500-7000); Neutrophils Percent Auto 67.9 % (50-75); Platelet Count 226 X10^3/uL (150-400); Red Blood Cell Count 4.73 X10^6/uL (4.0-5.2); Red Cell Distribution Width 13.5 % (11.6-14.8)
[2020-05-05 14:22] LABS: Prothrombin Time 11.6 SECONDS (10.1-12.7)
[2020-05-05 14:24] LABS: PTT Partial Thromboplastin Tim 32 SECONDS (26.4-36.2)
[2020-05-05 14:27] LABS: Alanine Aminotransferase 19 IU/L (<35); Albumin 4.3 g/dL (3.5-5.0); Albumin Globulin Ratio 1.3 (1.0-2.8); Alkaline Phosphatase 100 U/L (38-126); Aspartate Aminotransferase 30 IU/L (14-36); BUN Creatinine Ratio 33.9 (6-22); Bilirubin Total 0.3 mg/dL (0.2-1.3); Blood Urea Nitrogen 20 mg/dL (7-17); Calcium 9.5 mg/dL (8.4-10.2); Carbon Dioxide 25 mmol/L (22-32); Chloride 107 mmol/L (98-107); Creatine Kinase 84 U/L (30-135); Estimated Glomerular Filt Rate > 60.0 mL/min (>60); Globulin 3.2 g/dL (1.7-4.1); Glucose 109 mg/dL (80-110); HEMOLYSIS < 15 (0-50); Lipase 108 U/L (23-300); Potassium 4.1 mmol/L (3.4-5.1); Sodium 137 mmol/L (137-145); Total Protein 7.5 g/dL (6.3-8.2)
--- NOTE | 2020-05-05 14:36 | DI.CT.S_ITS ---
PROCEDURE: CT ANGIO CHEST PE PROTOCOL INDICATIONS: LEFT SIDED DIVYA PAIN WITH LEG SWELLING TECHNIQUE: After the administration of intravenous contrast, 2 mm thick sections acquired from the pulmonary apices to the posterior costophrenic angles. 3-dimensional maximum intensity projection (MIP) coronal and sagittal reformats were then acquired through the thorax. For radiation dose reduction, the following was used: automated exposure control, adjustment of mA and/or kV according to patient size. COMPARISON: [facility], CT, CT ABDOMEN PELVIS W CON, 01/31/2019, 10:58. [facility], CR, XR CHEST 1V, 05/05/2020, 14:07. FINDINGS: Image quality: Excellent. Pulmonary arteries: Pulmonary arteries are normal in size, and demonstrate no intraluminal filling defects to suggest central pulmonary embolism. Lungs and pleura: Lungs are clear. No pleural effusions or pneumothorax. Central and peripheral airways are patent. Mediastinum: Heart size is normal, without pericardial effusion. No mediastinal or hilar adenopathy. Thoracic aorta is normal in caliber and enhancement. Esophagus is normal in caliber, without hiatal hernia. Bones and chest wall: No suspicious bony lesions. Ribs and thoracic spine appear intact throughout. Thyroid gland is unremarkable. No axillary or supraclavicular adenopathy. Abdomen: Visualized upper abdominal solid organs appear normal in the early arterial phase of enhancement. Small benign hepatic cysts, unchanged. IMPRESSION: 1. No pulmonary embolism. 2. No acute airspace opacity. Dictated by: Geo Mckinnon M.D. on 05/05/2020 at 15:20 Approved by: Geo Mckinnon M.D. on 05/05/2020 at 15:27
--- NOTE | 2020-05-05 14:36 | DI.US.S_ITS ---
PROCEDURE: US PERIPH VENOUS LOW EXTREM LT INDICATIONS: EDEMA TECHNIQUE: Real-time imaging, as well as color and pulse Doppler interrogation, were performed of the lower extremity deep veins from the inguinal ligament to the popliteal fossa. COMPARISON: [facility], CT, CT ANGIO CHEST PE PROTOCOL, 05/05/2020, 14:44. FINDINGS: The common femoral, femoral and popliteal veins are normally compressible, and free of intraluminal thrombus. Color and pulse Doppler demonstrate normal phasic intraluminal flow. There is normal augmentation response to distal compression maneuver. IMPRESSION: No left lower extremity DVT. Dictated by: Geo Mckinnon M.D. on 05/05/2020 at 15:53 Approved by: Geo Mckinnon M.D. on 05/05/2020 at 15:54
--- NOTE | 2020-05-05 14:38 | ED.CHESTPAIN ---
HPI - Chest Pain General Chief Complaint: Chest Pain Stated Complaint: severe leg pain, pain in chest and arm now Time Seen by Provider: 05/05/20 14:12 Source: patient Mode of arrival: Ambulatory Limitations: no limitations History of Present Illness HPI narrative: Patient is a 65-year-old female with history of uterine cancer status post hysterectomy 2012 with chronic ongoing lymphedema more in her left leg min right presenting today with increased left thigh swelling and left-sided chest pain. She says the leg pain and swelling she thought was from a back injury over [place]. She said that overall has been improving but she says she now feels like her left anterior thigh is more numb than it was previously. Today she got home from [place] sat down and started noticing some left-sided chest pain radiating to her neck and down her arm. It has been constant in nature with no provocation or palliation. She says just now in the emergency department it has resolved. No prior history of coronary artery disease. She denies any shortness of breath or palpitation. MD complaint: chest pain Onset (ago): hour(s) Duration: constant Onset: during rest Pain location: left chest Severity: moderate Quality: aching Relieving factors: nothing Exacerbating factors: nothing Related Data Home Medications Medication Instructions Recorded Confirmed omeprazole 20 mg PO QAM 01/31/19 01/31/19 Previous Rx's Medication Instructions Recorded cefuroxime axetil 500 mg PO BID #14 tab 02/03/19 Allergies Allergy/AdvReac Type Severity Reaction Status Date / Time adhesive tape Allergy Verified 01/31/19 09:09 Review of Systems Review of Systems Narrative: GENERAL: Denies chills, fatigue, malaise, fever, sweats, travel HEENT: Denies sinus pain, ear pain, sore throat, difficulty swallowing, neck pain RESPIRATORY: Denies dyspnea, cough, wheezing, hemoptysis, sputum. CARDIOVASCULAR: See HPI GASTROINTESTINAL: Denies nausea, vomiting, abdominal pain, diarrhea, constipation, melena. : Denies dysuria, frequency, incontinence, hematuria, urinary retention, flank pain. MUSCULOSKELETAL:+ lower extremity swelling and edema Denies weakness, joint pain, or bony pain SKIN: No rash, no erythema, no pruritus NEUROLOGIC: Denies weakness, dizziness, headache, numbness, change in speech, confusion PSYCHIATRIC: No concerning psychosocial issues. 12 point review of systems is negative except for those stated above and HPI Patient History Medical History (Updated 05/05/20 @ 17:25 by Izzy Gibbons DO) Uterine cancer Surgical History H/O bilateral oophorectomy H/O parathyroidectomy History of hysterectomy Family History Father Diabetes mellitus Social History marital status: household members: spouse Smoking Status: Never smoker alcohol intake: current Smoking Status: Never smoker alcohol intake frequency: a few times a week Substance Use Type: does not use Exam Initial Vital Signs Initial Vital Signs: Vital Signs Temperature 98.7 F 05/05/20 13:51 Pulse Rate 73 05/05/20 13:51 Respiratory Rate 16 05/05/20 13:51 Blood Pressure 156/87 H 05/05/20 13:51 Pulse Oximetry 97 05/05/20 13:51 GENERAL: Well-appearing, well-nourished and in no acute distress. HEENT: Head atraumatic,EOMI, pupils reactive, face symmetric, moist mucous membranes CARDIOVASCULAR: Regular rate and rhythm without murmurs, rubs or gallops. RESPIRATORY: Breath sounds equal bilaterally, no wheezes rales or rhonchi. ABDOMEN: Soft, nontender. Normoactive bowel sounds all 4 quadrants. No guarding or rebound. EXTREMITIES: Normal range of motion, no clubbing. Her non pitting lower extremity edema Neurovascularly intact NEUROLOGICAL: Alert and oriented x4.Normal gait and speech. SKIN: Warm, dry, no laceration, no petechiae, no rashes or lesions. No erythema of legs Scores HEART Score Heart Score history: Moderately Suspicious Heart Score EKG: Normal Heart Score Age: 45-64 years old Heart Score risk factors: No known risk factors Heart Score troponin: < or = to normal limit Heart Score Total: 2 Course Orders Ordered: ED Orders 05/05/20 13:51 XR chest 1V Stat EKG-12 Lead Stat 05/05/20 13:55 Complete Blood Count AUTO DIFF Stat Comprehensive Metabolic Panel Stat Lipase Stat Partial Thromboplastin Time Stat Prothrombin Time INR Stat Troponin & CK Cardiac Panel Stat 05/05/20 14:36 CT angio chest PE protocol Stat US periph venous low extrem lt Stat 05/05/20 18:30 Troponin I Stat Discontinued Medications Aspirin (Aspirin 81 Mg Chew Tab) 324 mg PO NOW ONE Stop: 05/05/20 17:24 Last Admin: 05/05/20 17:28 Dose: 324 mg Documented by: GREGOR Sodium Chloride (Normal Saline 0.9%) 1,000 mls @ 1,000 mls/hr IV BOLUS ONE Stop: 05/05/20 18:18 Last Infusion: 05/05/20 18:35 Dose: 0 mls/hr Documented by: Admin: 05/05/20 17:28 Dose: 1,000 mls/hr Documented by: GREGOR Nitroglycerin (Nitroglycerin 0.4 Mg Sl Tab) 0.4 mg SL [id number] PRN PRN Reason: Chest Pain Last Admin: 05/05/20 17:03 Dose: 0.4 mg Documented by: Admin: 05/05/20 16:58 Dose: 0.4 mg Documented by: Admin: 05/05/20 16:53 Dose: 0.4 mg Documented by: GREGOR Vital Signs Vital signs: Vital Signs - 8 hr 05/05/20 13:51 05/05/20 14:18 05/05/20 14:19 Temperature 98.7 F Pulse Rate 73 65 63 Respiratory Rate 16 23 15 Blood Pressure 156/87 H 138/82 138/82 Pulse Oximetry 97 97 98 05/05/20 14:30 05/05/20 15:11 05/05/20 15:30 Temperature Pulse Rate 73 68 60 Respiratory Rate 35 H 20 23 Blood Pressure 159/102 H Pulse Oximetry 96 93 98 05/05/20 16:00 05/05/20 16:18 05/05/20 16:30 Temperature Pulse Rate 57 L 59 L 57 L Respiratory Rate 12 13 12 Blood Pressure 122/72 122/73 Pulse Oximetry 98 98 98 05/05/20 16:55 05/05/20 16:58 05/05/20 17:00 Temperature Pulse Rate 59 L 80 80 Respiratory Rate 30 H 21 Blood Pressure 137/72 125/78 125/78 Pulse Oximetry 97 95 05/05/20 17:03 05/05/20 17:05 05/05/20 17:10 Temperature Pulse Rate 78 79 79 Respiratory Rate 16 13 Blood Pressure 118/71 118/71 79/56 L Pulse Oximetry 95 95 05/05/20 17:11 05/05/20 17:15 05/05/20 17:20 Temperature Pulse Rate 80 61 58 L Respiratory Rate 21 10 L 12 Blood Pressure 82/49 L 80/50 L 90/52 L Pulse Oximetry 95 96 95 MDM - Chest Pain Lab Data Attestation: I reviewed the patient's lab results. Result diagrams: 05/05/20 13:55 05/05/20 13:55 Labs: Lab Results 05/05/20 05/05/20 05/05/20 Range/Units 13:55 13:55 13:55 WBC 7.0 (4.5-11.0) X10^3/uL RBC 4.73 (4.0-5.2) X10^6/uL Hgb 14.6 (12.0-16.0) g/dL Hct 43.1 (36-46) % MCV 91.1 (80-100) fL MCH 30.9 (26-34) PG MCHC 33.9 (30-36) % RDW 13.5 (11.6-14.8) % Plt Count 226 (150-400) X10^3/uL Neut % (Auto) 67.9 (50-75) % Lymph % (Auto) 22.7 L (25-40) % [place] % (Auto) 7.3 (3-14) % Eos % (Auto) 1.3 L (2-4) % Baso % (Auto) 0.8 (0-2) % Neut # (Auto) 4800 (3742-1130) /uL Lymph # (Auto) 1600 (7321-2729) /uL [place] # (Auto) 500 (0-900) /uL Eos # (Auto) 100 (0-450) /uL Baso # (Auto) 100 (0-100) /uL PT 11.6 (10.1-12.7) SECONDS INR 1.0 (0.9-1.3) APTT 32 (26.4-36.2) SECONDS Sodium 137 (137-145) mmol/L Potassium 4.1 (3.4-5.1) mmol/L Chloride 107 (98-107) mmol/L Carbon Dioxide 25 (22-32) mmol/L BUN 20 H (7-17) mg/dL Creatinine 0.59 (0.52-1.04) mg/dL Estimated GFR > 60.0 (>60) mL/min BUN/Creatinine Ratio 33.9 H (6-22) Glucose 109 (80-110) mg/dL Calcium 9.5 (8.4-10.2) mg/dL Total Bilirubin 0.3 (0.2-1.3) mg/dL AST 30 (14-36) IU/L ALT 19 (<35) IU/L Alkaline Phosphatase 100 (38-126) U/L Total Creatine Kinase 84 (30-135) U/L CK-MB (CK-2) TNP CK-MB (CK-2) Rel Index TNP Troponin I < 0.012 (0.01-0.034) ng/mL Total Protein 7.5 (6.3-8.2) g/dL Albumin 4.3 (3.5-5.0) g/dL Globulin 3.2 (1.7-4.1) g/dL Albumin/Globulin Ratio 1.3 (1.0-2.8) Lipase 108 (23-300) U/L Imaging Data CT scan - chest: Radiologist's Impression: PROCEDURE: CT ANGIO CHEST PE PROTOCOL INDICATIONS: LEFT SIDED DIVYA PAIN WITH LEG SWELLING TECHNIQUE: After the administration of intravenous contrast, 2 mm thick sections acquired from the pulmonary apices to the posterior costophrenic angles. 3-dimensional maximum intensity projection (MIP) coronal and sagittal reformats were then acquired through the thorax. For radiation dose reduction, the following was used: automated exposure control, adjustment of mA and/or kV according to patient size. COMPARISON: [facility], CT, CT ABDOMEN PELVIS W CON, 01/31/2019, 10:58. [facility], CR, XR CHEST 1V, 05/05/2020, 14:07. FINDINGS: Image quality: Excellent. Pulmonary arteries: Pulmonary arteries are normal in size, and demonstrate no intraluminal filling defects to suggest central pulmonary embolism. Lungs and pleura: Lungs are clear. No pleural effusions or pneumothorax. Central and peripheral airways are patent. Mediastinum: Heart size is normal, without pericardial effusion. No mediastinal or hilar adenopathy. Thoracic aorta is normal in caliber and enhancement. Esophagus is normal in caliber, without hiatal hernia. Bones and chest wall: No suspicious bony lesions. Ribs and thoracic spine appear intact throughout. Thyroid gland is unremarkable. No axillary or supraclavicular adenopathy. Abdomen: Visualized upper abdominal solid organs appear normal in the early arterial phase of enhancement. Small benign hepatic cysts, unchanged. IMPRESSION: 1. No pulmonary embolism. 2. No acute airspace opacity. Dictated by: Geo Mckinnon M.D. on 05/05/2020 at 15:20 US - DVT: Radiologist's Impression: PROCEDURE: US PERIPH VENOUS LOW EXTREM LT INDICATIONS: EDEMA TECHNIQUE: Real-time imaging, as well as color and pulse Doppler interrogation, were performed of the lower extremity deep veins from the inguinal ligament to the popliteal fossa. COMPARISON: [facility], CT, CT ANGIO CHEST PE PROTOCOL, 05/05/2020, 14:44. FINDINGS: The common femoral, femoral and popliteal veins are normally compressible, and free of intraluminal thrombus. Color and pulse Doppler demonstrate normal phasic intraluminal flow. There is normal augmentation response to distal compression maneuver. IMPRESSION: No left lower extremity DVT. Dictated by: Geo Mckinnon M.D. on 05/05/2020 at 15:53 ECG Data Attestation: I personally reviewed and interpreted this ECG as follows: Prior ECG tracings: available for review Interpretation: EKG 1. Normal sinus rhythm rate 69 p.r. interval 140 QRS [address] changes similar to previous EKG EKG 2. Normal sinus rhythm rate 56 p.r. interval 70 for CLOtest [address] changes MDM Narrative Medical decision making narrative: Patient still having chest pain on left side she is given 3 nitroglycerin which helped with her pain but decrease her blood pressure. Due to new onset left-sided pain relieved with nitroglycerin with concerning symptoms will admit to observation for chest pain. Dr. rhodes updated patient's symptoms test results and agrees. Discharge Plan Departure Patient Disposition: Admitted as Observation Clinical Impression: Chest pain Admit Date/Time: 05/05/20 17:28 Admit Provider: Jolanta Rhodes
[2020-05-05 14:39] LABS: Troponin I < 0.012 ng/mL (0.01-0.034)
[2020-05-05] MEDS: NITROGLYCERIN 0.4 MG SL TAB SL ×3 (16:53→17:03)
[2020-05-05] MEDS: ASPIRIN 81 MG CHEW TAB 324 MG PO (17:28)
[2020-05-05] MEDS: SODIUM CHLORIDE 0.9% 1,000 ML 1000 ML IV (17:28)
[2020-05-05 18:21] LABS: COVID19 -Nasal RAPID Negative (Negative)
[2020-05-05 19:10] LABS: Troponin I < 0.012 ng/mL (0.01-0.034)
--- NOTE | 2020-05-05 20:36 | PC.NURSE ---
Addendum entered by Marce Arce R.N. 05/05/20 23:32: Pt states is feeling well and denies any concerns or complaints. Heart healthy diet with modifications for nuc med study tomorrow explained to pt. [employer] teaching material provided to pt for nuc med perfusion study tomorrow. Tele in place. Original Note: Pt to room 209 via stretcher from E.R. Reports left chest pressure /. 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 States no assistive devices and safe on feet. Appropriate mentation and conversation.
[2020-05-05 20:45] LABS: Magnesium 1.9 mg/dL (1.6-2.3)
[2020-05-05 20:47] LABS: Hemoglobin A1C% w Est Avg Glu 5.3 % (4.0-6.0)
[2020-05-05 20:56] LABS: NT-proBNP (BNP-Adult 18+) 30 pg/mL (<125)
[2020-05-05 21:15] LABS: TSH w/ Reflex to FT4 0.29 uIU/mL (0.47-4.68)
[2020-05-05 21:41] LABS: Free T4, Direct Thyroxine 1.13 ng/dL (0.78-2.19)
[2020-05-05] MEDS: SODIUM CHLORIDE 0.9% FLUSH 10 ML IV (21:41)
[2020-05-06 01:01] LABS: Troponin I < 0.012 ng/mL (0.01-0.034)
--- NOTE | 2020-05-06 01:51 | PM.HP.1 ---
History of Present Illness History of Present Illness Date Patient Seen: 05/05/20 Time Patient Seen: 21:00 Chief complaint: severe leg pain, pain in chest and arm now Narrative: Patrick Clay is a pleasant 65 y.o. female with a history of uterine cancer in remission and chronic left leg lymphedema who presents with chest pain today. Over the holidays she was moving things around in her house and ?tweaked her back. She states that it seemed to be resolving and then she developed burning pain in her left leg for which she has chronic lymphedema. That seem to be resolving and then developed increasing pressure in her left side of her chest and the pain radiated into her arm and lower neck not into her jaw. She was given 3 nitros and apparently that resolved the chest pain. 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 She denies nausea or vomiting, she does endorse having slow urination that she attributes to age, she has had about a 3 week period of low back pain, and she has chronic numbing of her toes and upper thigh of her left leg. Chest x-ray, chest CT, and vascular ultrasound of the left leg did not reveal any abnormalities to rule out either a PE or DVT. The patient's temperature was 90.7?, blood pressure 105/68, heart rate 50, respiratory rate 18, oxygen saturation of 99% on room air she weighs 88.4 kg with a BMI of 32.4. WBC was largely within normal limits, BMP was also largely within normal limits with exception of a mildly elevated BUN at 20, glucose was 109, hemoglobin A1c was 5.3, magnesium 1.9, liver enzymes within normal limits, troponins x2 were within normal limits 3rd 1 is pending, TSH was 0.29 with a normal free T4 of 1.13 Patient History Medical History (Updated 05/06/20 @ 01:59 by KATHRINE Fuentes) Chronic acquired lymphedema Uterine cancer Surgical History H/O bilateral oophorectomy H/O parathyroidectomy History of hysterectomy Family & Social History Family History Father Diabetes mellitus Social History: household members spouse Prior Living Arrangements House Safety & Behavioral: Feels Safe in Current Yes Environment Been Physically Hurt or No Threatened By a Person Suicidal Ideation Description None Suicide Plan Description No Plan Tobacco & Substance use: Smoking Status Never smoker alcohol intake current alcohol intake frequency a few times a week Substance Use Type does not use Meds Home Medications and Allergies Home Medications Medication Instructions Recorded Confirmed Type omeprazole 20 mg PO QAM 01/31/19 05/05/20 History alendronate [Fosamax] 70 mg PO QWEEK 05/05/20 05/05/20 History penicillin V potassium 250 mg PO BID 05/05/20 05/05/20 History Allergies Allergy/AdvReac Type Severity Reaction Status Date / Time adhesive tape Allergy Verified 01/31/19 09:09 Review of Systems Review of Systems ROS: Yes All systems reviewed with the patient and are negative except as otherwise documented Exam Vital Signs (past 8 hours): - 05/05/20 18:00 05/05/20 18:10 05/05/20 18:20 Temperature Pulse Rate 63 52 L 61 Respiratory Rate 21 13 15 Blood Pressure 123/73 126/67 113/60 Pulse Oximetry 100 100 99 05/05/20 18:30 05/05/20 18:40 05/05/20 18:50 Temperature Pulse Rate 64 58 L 63 Respiratory Rate 27 H 17 17 Blood Pressure 119/64 121/63 113/67 Pulse Oximetry 99 98 98 05/05/20 19:20 05/05/20 23:00 Temperature 96.9 F L 98.7 F Pulse Rate 58 L 50 L Respiratory Rate 19 18 Blood Pressure 157/97 H 105/68 Pulse Oximetry 98 99 Oxygen Delivery Method Room Air Oxygen Flow Rate 0 Narrative Exam Narrative: Gen: Alert, oriented, well-developed 65 y.o. female, mildly anxious HEENT: normocephalic, atraumatic, conjunctiva clear, sclera non-icteric, oral mucosa pink and moist Neck: supple, full ROM, no JVD, trachea is midline Resp: Lungs CTA, non-labored breathing CV: RRR, no murmur or rubs Abd: soft, non-tender, normoactive BTs Skin: no lesions or rashes, dry and intact Neuro: Alert and oriented X 4 w/no focal deficits. Speech clear and coherent. Extremities: She has bilateral nonpitting edema left greater than right, moves all 4 extremities, is ambulatory, pain in posterior left knee Psyche: normal mood and affect Objective Labs Result Diagrams: 05/05/20 13:55 05/05/20 13:55 Labs: Laboratory Results - last 24 hr 05/05/20 05/05/20 05/05/20 13:55 13:55 13:55 WBC 7.0 RBC 4.73 Hgb 14.6 Hct 43.1 MCV 91.1 MCH 30.9 MCHC 33.9 RDW 13.5 Plt Count 226 Neut % (Auto) 67.9 Lymph % (Auto) 22.7 L [place] % (Auto) 7.3 Eos % (Auto) 1.3 L Baso % (Auto) 0.8 Neut # (Auto) 4800 Lymph # (Auto) 1600 [place] # (Auto) 500 Eos # (Auto) 100 Baso # (Auto) 100 PT 11.6 INR 1.0 APTT 32 Sodium 137 Potassium 4.1 Chloride 107 Carbon Dioxide 25 BUN 20 H Creatinine 0.59 Estimated GFR > 60.0 BUN/Creatinine Ratio 33.9 H Glucose 109 Hemoglobin A1c Calcium 9.5 Magnesium Total Bilirubin 0.3 AST 30 ALT 19 Alkaline Phosphatase 100 Total Creatine Kinase 84 CK-MB (CK-2) TNP CK-MB (CK-2) Rel Index TNP Troponin I < 0.012 NT-Pro-B Natriuret Pep Total Protein 7.5 Albumin 4.3 Globulin 3.2 Albumin/Globulin Ratio 1.3 Lipase 108 TSH Free T4 SARS-CoV-2 (PCR) 05/05/20 05/05/20 05/05/20 13:55 13:55 13:55 WBC RBC Hgb Hct MCV MCH MCHC RDW Plt Count Neut % (Auto) Lymph % (Auto) [place] % (Auto) Eos % (Auto) Baso % (Auto) Neut # (Auto) Lymph # (Auto) [place] # (Auto) Eos # (Auto) Baso # (Auto) PT INR APTT Sodium Potassium Chloride Carbon Dioxide BUN Creatinine Estimated GFR BUN/Creatinine Ratio Glucose Hemoglobin A1c 5.3 Calcium Magnesium 1.9 Total Bilirubin AST ALT Alkaline Phosphatase Total Creatine Kinase CK-MB (CK-2) CK-MB (CK-2) Rel Index Troponin I NT-Pro-B Natriuret Pep 30 Total Protein Albumin Globulin Albumin/Globulin Ratio Lipase TSH Free T4 SARS-CoV-2 (PCR) 05/05/20 05/05/20 05/05/20 13:55 17:55 18:30 WBC RBC Hgb Hct MCV MCH MCHC RDW Plt Count Neut % (Auto) Lymph % (Auto) [place] % (Auto) Eos % (Auto) Baso % (Auto) Neut # (Auto) Lymph # (Auto) [place] # (Auto) Eos # (Auto) Baso # (Auto) PT INR APTT Sodium Potassium Chloride Carbon Dioxide BUN Creatinine Estimated GFR BUN/Creatinine Ratio Glucose Hemoglobin A1c Calcium Magnesium Total Bilirubin AST ALT Alkaline Phosphatase Total Creatine Kinase CK-MB (CK-2) CK-MB (CK-2) Rel Index Troponin I < 0.012 NT-Pro-B Natriuret Pep Total Protein Albumin Globulin Albumin/Globulin Ratio Lipase TSH 0.29 L Free T4 1.13 SARS-CoV-2 (PCR) Negative 05/06/20 00:30 WBC RBC Hgb Hct MCV MCH MCHC RDW Plt Count Neut % (Auto) Lymph % (Auto) [place] % (Auto) Eos % (Auto) Baso % (Auto) Neut # (Auto) Lymph # (Auto) [place] # (Auto) Eos # (Auto) Baso # (Auto) PT INR APTT Sodium Potassium Chloride Carbon Dioxide BUN Creatinine Estimated GFR BUN/Creatinine Ratio Glucose Hemoglobin A1c Calcium Magnesium Total Bilirubin AST ALT Alkaline Phosphatase Total Creatine Kinase CK-MB (CK-2) CK-MB (CK-2) Rel Index Troponin I < 0.012 NT-Pro-B Natriuret Pep Total Protein Albumin Globulin Albumin/Globulin Ratio Lipase TSH Free T4 SARS-CoV-2 (PCR) Assessment & Plan Assessment & Plan narrative: Velma Mccarty will observed overnight to rule out ACS Chest pin r/o ACS -Complete echo in am -Pharmacological stress test -Start ASA 81 mg -Received nitro X 3 in the ED -EKG shows no ischemic changes with sinus bradycardia Blood pressure management -Other than an isolated instance of elevated blood pressures she has been normotensive or even hypotensive HLD -Lipid panel, pending -Start atorvastatin 20 mg po at bedtime Risk stratification -Fasting lipid panel pending to the 5 am labs -A1c 5.3 % ruling out diabetes VTE prophylaxis: Wells risk score: [] [] Enoxaparin 40 mg subQ daily [] Bilateral SCDs Consults: none Patient is observation status as her stay is not likely to exceed 2 midnights. FEN: saline lock , heart healthty diet, BMP and magnesium in the am. Dispo: probable negative studies and discharge to home Code Status: Full code as discussed with patient COVID-19 COVID-19 status: Negative Result date/Date tested (Pos, Neg/Pending): 05/05/20 Quality VTE Deep Vein Thrombosis/Pulmonary Embolism Present on Admission: No
--- NOTE | 2020-05-06 03:32 | PC.NURSE ---
Pt resting peacefully, no c/o at this time. Has been NPO since 329.
[2020-05-06 05:33] LABS: Add Manual Diff / Slide Review NO; Basophils Absolute Auto 100 /uL (0-100); Basophils Percent Auto 0.9 % (0-2); Eosinophils Absolute Auto 100 /uL (0-450); Hemoglobin 13.6 g/dL (12.0-16.0); Lymphocytes Absolute Auto 1500 /uL (1100-4500); Lymphocytes Percent Auto 23.9 % (25-40); Mean Corpuscular HGB Conc 33.2 % (30-36); Mean Corpuscular Hemoglobin 30.4 PG (26-34); Mean Corpuscular Volume 91.7 fL (80-100); Monocytes Absolute Auto 600 /uL (0-900); Monocytes Percent Auto 9.8 % (3-14); Neutrophils Absolute Auto 4000 /uL (1500-7000); Neutrophils Percent Auto 63.4 % (50-75); Platelet Count 226 X10^3/uL (150-400); Red Blood Cell Count 4.47 X10^6/uL (4.0-5.2); Red Cell Distribution Width 13.6 % (11.6-14.8); White Blood Cell Count 6.4 X10^3/uL (4.5-11.0)
[2020-05-06 05:39] LABS: Alanine Aminotransferase 16 IU/L (<35); Albumin 3.8 g/dL (3.5-5.0); Albumin Globulin Ratio 1.4 (1.0-2.8); Alkaline Phosphatase 77 U/L (38-126); Aspartate Aminotransferase 25 IU/L (14-36); BUN Creatinine Ratio 30.2 (6-22); Bilirubin Total 0.4 mg/dL (0.2-1.3); Blood Urea Nitrogen 16 mg/dL (7-17); Calcium 9.2 mg/dL (8.4-10.2); Carbon Dioxide 26 mmol/L (22-32); Chloride 111 mmol/L (98-107); Cholesterol 208 mg/dL (140-199); Estimated Glomerular Filt Rate > 60.0 mL/min (>60); Globulin 2.7 g/dL (1.7-4.1); Glucose 94 mg/dL (80-110); HDL Cholesterol 69 mg/dL (40-60); HEMOLYSIS < 15 (0-50); LDL Cholesterol Calculated 127 mg/dL (<100); Potassium 4.2 mmol/L (3.4-5.1); Sodium 139 mmol/L (137-145); Total Protein 6.5 g/dL (6.3-8.2); Triglycerides 60 mg/dL (35-150)
[2020-05-06 06:00] VITALS: BP 117/78; PULSE 107; RESP 16; TEMP 36.4; O2SAT 97
[2020-05-06] MEDS: ENOXAPARIN 40 MG/0.4 ML SYRINGE SUBCUT (10:36)
[2020-05-06] MEDS: ASPIRIN EC 81 MG TABLET PO (10:36)
[2020-05-06] MEDS: SODIUM CHLORIDE 0.9% FLUSH 10 ML IV ×2 (10:36→22:05)
[2020-05-06] MEDS: ACETAMINOPHEN 325 MG TABLET 650 MG PO ×2 (10:40→19:57)
[2020-05-06 12:33] VITALS: BP 124/74; PULSE 80; RESP 16; TEMP 36.6; O2SAT 100
--- NOTE | 2020-05-06 15:04 | CM.DANOTE ---
Patient is a 65 yo female who was admitted on 05/05/20 for Chest Pain. Pt has [facility] for insurance and her PCP is Dr. Dominga Goode. EMR was reviewed. Per MD, pt with hx of uterine CA in remission and chronic cellulitis and Echo and stress test ordered and pending. SW met bedside with pt and explained role and she confirms she lives at home with her in [place] and is active and independent at baseline. Pt just completed DPOA/Living Will recently and plans to get a copy to her PCP and her DPOA is her . Pt denies any hx of HH or SNF but back in 2013 needed IV-Abx and had home infusion company that she felt did a good job and now chronically takes abx to reduce risk of recurrent cellulitis. Pt preference is home via POV when medically stable and does not anticipate any needs. Plan: SW to follow closely for test results to confirm safe plan of home with and any further identified needs. GUCCI Dunlap Discharge Planning/Care Management CM Discharge Assessment Start: 05/06/20 15:02 Freq: Status: Active Protocol: Document 05/06/20 15:02 BF (Rec: 05/06/20 15:03 [id number]) Discharge Planning Assessment Assigned Resource Conservation Specialist GUCCI Gilman DPOA/Assigned Designee Name spouse Derek Contact Information [phone] Advance Directives? No Advance Directives on File No History Provided By Patient,Medical Record Has Patient been admitted in last 30 No days? Prior Living Arrangements House Household Members spouse Type of transporation used prior to Drives own vehicle admit Independent with ADL's Yes Is patient alert and oriented? Yes Caregiver for Another No Barriers to Discharge No Discharge Plan Home Transportation Arrangement Spouse Referrals Initiated None needed Whiteboard Updated in Patient Room with Yes name and ext. # of Resource Conservation Specialist Review Status In Process Please Provide Date Initial DC 05/06/20 Assessment Was Performed Next Review Type Continued Stay Review
--- NOTE | 2020-05-06 15:33 | PC.NURSE ---
Patient without complaint today. Independent in room, vss, SR on telemetry, denies any further chest pain. Echo completed. Call light within reach. Waiting for clarification from MD as to when nuc med stress test will be completed (tomorrow versus outpatient?). Patient remains pleasant and cooperative. voiding and have BM without difficutly.
[2020-05-06 15:45] VITALS: BP 111/75; PULSE 58; RESP 18; TEMP 36.1; O2SAT 96
--- NOTE | 2020-05-06 16:21 | P.PN_ITS ---
Subjective Subjective Date Patient Seen: 05/06/20 Interval history: 65-year-old female admitted to the hospital for chest pain. She has had no further chest pain. She continues to have some left leg pain related to a back injury. Patient was scheduled for stress test today. Unfortunately they were unable to get to her. This study has been rescheduled for tomorrow. Exam Vital Signs (past 8 hours): - 05/06/20 12:33 05/06/20 15:45 Temperature 98 F 96.9 F L Pulse Rate 80 58 L Respiratory Rate 16 18 Blood Pressure 124/74 111/75 Pulse Oximetry 100 96 Oxygen Delivery Method Room Air Oxygen Flow Rate 0 Narrative Exam Narrative: Pleasant female resting comfortably in no obvious distress Lungs: Clear to auscultation Cardiac exam: Regular rate rhythm normal S1-S2 Abdomen: Soft nontender nondistended Extremities: Left leg with edema Objective Labs Result Diagrams: 05/06/20 05:15 05/06/20 05:15 Labs: Laboratory Results - last 24 hr 05/05/20 05/05/20 05/05/20 13:55 13:55 13:55 WBC RBC Hgb Hct MCV MCH MCHC RDW Plt Count Neut % (Auto) Lymph % (Auto) [place] % (Auto) Eos % (Auto) Baso % (Auto) Neut # (Auto) Lymph # (Auto) [place] # (Auto) Eos # (Auto) Baso # (Auto) Sodium Potassium Chloride Carbon Dioxide BUN Creatinine Estimated GFR BUN/Creatinine Ratio Glucose Hemoglobin A1c 5.3 Calcium Magnesium 1.9 Total Bilirubin AST ALT Alkaline Phosphatase Troponin I NT-Pro-B Natriuret Pep 30 Total Protein Albumin Globulin Albumin/Globulin Ratio Triglycerides Cholesterol LDL Cholesterol, Calc HDL Cholesterol TSH Free T4 SARS-CoV-2 (PCR) 05/05/20 05/05/20 05/05/20 13:55 17:55 18:30 WBC RBC Hgb Hct MCV MCH MCHC RDW Plt Count Neut % (Auto) Lymph % (Auto) [place] % (Auto) Eos % (Auto) Baso % (Auto) Neut # (Auto) Lymph # (Auto) [place] # (Auto) Eos # (Auto) Baso # (Auto) Sodium Potassium Chloride Carbon Dioxide BUN Creatinine Estimated GFR BUN/Creatinine Ratio Glucose Hemoglobin A1c Calcium Magnesium Total Bilirubin AST ALT Alkaline Phosphatase Troponin I < 0.012 NT-Pro-B Natriuret Pep Total Protein Albumin Globulin Albumin/Globulin Ratio Triglycerides Cholesterol LDL Cholesterol, Calc HDL Cholesterol TSH 0.29 L Free T4 1.13 SARS-CoV-2 (PCR) Negative 05/06/20 05/06/20 05/06/20 00:30 05:15 05:15 WBC 6.4 RBC 4.47 Hgb 13.6 Hct 41.0 MCV 91.7 MCH 30.4 MCHC 33.2 RDW 13.6 Plt Count 226 Neut % (Auto) 63.4 Lymph % (Auto) 23.9 L [place] % (Auto) 9.8 Eos % (Auto) 2.0 Baso % (Auto) 0.9 Neut # (Auto) 4000 Lymph # (Auto) 1500 [place] # (Auto) 600 Eos # (Auto) 100 Baso # (Auto) 100 Sodium 139 Potassium 4.2 Chloride 111 H Carbon Dioxide 26 BUN 16 Creatinine 0.53 Estimated GFR > 60.0 BUN/Creatinine Ratio 30.2 H Glucose 94 Hemoglobin A1c Calcium 9.2 Magnesium 2.0 Total Bilirubin 0.4 AST 25 ALT 16 Alkaline Phosphatase 77 Troponin I < 0.012 NT-Pro-B Natriuret Pep Total Protein 6.5 Albumin 3.8 Globulin 2.7 Albumin/Globulin Ratio 1.4 Triglycerides 60 Cholesterol 208 H LDL Cholesterol, Calc 127 H HDL Cholesterol 69 H TSH Free T4 SARS-CoV-2 (PCR) [facility] Medical History (Updated 05/06/20 @ 01:59 by KATHRINE Fuentes) Chronic acquired lymphedema Uterine cancer Surgical History H/O bilateral oophorectomy H/O parathyroidectomy History of hysterectomy Family History Father Diabetes mellitus Social History marital status: household members: spouse Smoking Status: Never smoker alcohol intake: current Assessment & Plan Assessment & Plan narrative: hest pin r/o ACS -Complete echo -normal echo -Pharmacological stress test, unable to get this done today will obtain tomorrow -Start ASA 81 mg -Received nitro X 3 in the ED -EKG shows no ischemic changes with sinus bradycardia -ultrasound of the left lower extremity -no evidence of DVT Blood pressure management -Other than an isolated instance of elevated blood pressures she has been normotensive or even hypotensive HLD -Lipid panel, pending -Start atorvastatin 20 mg po at bedtime Risk stratification -Fasting lipid panel pending to the 5 am labs -A1c 5.3 % ruling out diabetes Quality VTE Deep Vein Thrombosis/Pulmonary Embolism Present on Admission: No
[2020-05-06 19:53] VITALS: BP 126/76; PULSE 55; RESP 20; TEMP 36.1
[2020-05-06] MEDS: ATORVASTATIN 20 MG TABLET PO (22:05)
--- NOTE | 2020-05-06 23:11 | PC.NURSE ---
Report received, care assumed 1530. A&Ox4, VSS. Denies pain other than headache, for which she received Tylenol. Low fall risk; independent in room. No caffeine, will be NPO at 0530 for stress test.
[2020-05-07 00:53] VITALS: BP 113/67; PULSE 58; RESP 18; TEMP 36.2; O2SAT 97
[2020-05-07 05:18] VITALS: BP 106/61; PULSE 60; RESP 18; TEMP 36.4; O2SAT 97
[2020-05-07] MEDS: SODIUM CHLORIDE 0.9% FLUSH 10 ML IV (09:01)
[2020-05-07] MEDS: ASPIRIN EC 81 MG TABLET PO (09:01)
[2020-05-07] MEDS: ENOXAPARIN 40 MG/0.4 ML SYRINGE SUBCUT (09:01)
[2020-05-07 11:50] VITALS: BP 109/75; PULSE 64; RESP 13; TEMP 36.2; O2SAT 99
[2020-05-07 15:15] VITALS: BP 116/75; PULSE 71; RESP 16; TEMP 36.2; O2SAT 97
--- NOTE | 2020-05-07 17:40 | P.DS_ITS ---
History of Present Illness History of Present Illness Chief complaint: severe leg pain, pain in chest and arm now Narrative: Patrick Clay is a pleasant 65 y.o. female with a history of uterine cancer in remission and chronic left leg lymphedema who presents with chest pain today. Over the holidays she was moving things around in her house and ?tweaked her back. She states that it seemed to be resolving and then she developed burning pain in her left leg for which she has chronic lymphedema. That seem to be resolving and then developed increasing pressure in her left side of her chest and the pain radiated into her arm and lower neck not into her jaw. She was given 3 nitros and apparently that resolved the chest pain. 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 She denies nausea or vomiting, she does endorse having slow urination that she attributes to age, she has had about a 3 week period of low back pain, and she has chronic numbing of her toes and upper thigh of her left leg. Chest x-ray, chest CT, and vascular ultrasound of the left leg did not reveal any abnormalities to rule out either a PE or DVT. The patient's temperature was 90.7?, blood pressure 105/68, heart rate 50, respiratory rate 18, oxygen saturation of 99% on room air she weighs 88.4 kg with a BMI of 32.4. WBC was largely within normal limits, BMP was also largely within normal limits with exception of a mildly elevated BUN at 20, glucose was 109, hemoglobin A1c was 5.3, magnesium 1.9, liver enzymes within normal limits, troponins x2 were within normal limits 3rd 1 is pending, TSH was 0.29 with a normal free T4 of 1.13 Discharge Providers Provider Date of admission: 05/05/20 17:28 Discharge Date: 05/07/20 Primary care physician: Dominga Goode MD Discharge provider: Thomas Hart MD Summary Hospital Course Discharge Diagnosis: 1. Chest pain, noncardiac Patient was admitted with chest pain rule out. She had serial negative troponin and no ischemic changes on EKG. As noted chest CTA did not show pulmonary embolism. Echo also was unremarkable. She had myocardial perfusion stress test which was read as low risk for occlusive CAD. Also she was having pain in the left leg and had negative venous duplex ultrasound. Patient is going to discharge home and follow-up with her PCP Dr. Dominga Goode. Status at Discharge Cognitive/behavioral status at discharge: oriented Functional status at discharge: independent ambulation Overall status at discharge: patient is back to baseline Time Spent with Patient Time spent: Less than 30 minutes Exam Vital Signs (past 8 hours): - 05/07/20 11:50 05/07/20 15:15 Temperature 97.1 F L 97.1 F L Pulse Rate 64 71 Respiratory Rate 13 16 Blood Pressure 109/75 116/75 Pulse Oximetry 99 97 Oxygen Delivery Method Room Air Oxygen Flow Rate 0 Objective Labs Result Diagrams: 05/06/20 05:15 05/06/20 05:15 [facility] Medical History (Updated 05/06/20 @ 01:59 by KATHRINE Fuentes) Chronic acquired lymphedema Uterine cancer Surgical History H/O bilateral oophorectomy H/O parathyroidectomy History of hysterectomy Family History Father Diabetes mellitus Social History marital status: household members: spouse Smoking Status: Never smoker alcohol intake: current Discharge Plan Discharge Plan Patient Disposition: Home Discharge orders & Medications Prescriptions: Continued alendronate [Fosamax] 70 mg Tablet 70 mg PO QWEEK RF: 0 omeprazole 20 mg capsule,delayed release(DR/EC) 20 mg PO QAM RF: 0 Discontinued penicillin V potassium 250 mg Tablet 250 mg PO BID RF: 0 Follow up/Referrals: Dominga Goode MD [Primary Care Provider] - Diet/Activity/Treatments Diet: Diet as Tolerated Discharge Data Primary Care Provider: Dominga Goode Attending Provider: Jolanta Rhodes VTE Deep Vein Thrombosis/Pulmonary Embolism Present on Admission: No
--- NOTE | 2020-05-07 18:01 | DI.NM.S_ITS ---
DATE OF SERVICE: 05/07/2020 PROCEDURE: Exercise perfusion study. INDICATIONS: Chest pain, hyperlipidemia. RADIOPHARMACEUTICAL: 25.8 millicurie technetium-99m Myoview IV was injected at stress and 13.5 millicurie technetium-99m Myoview IV was injected at rest. CARDIAC STRESS: The patient underwent exercise perfusion study under the supervision of an attending staff. She walked on Christiano protocol for 4 minutes 02 seconds, achieved 98% of target heart rate, normal blood pressure response, functional aerobic impairment positive 36% and 4.6 METS of workload. The patient felt fatigued. No ischemic symptoms. Baseline EKG revealed sinus rhythm. During stress, no convincing ischemic changes seen. No significant arrhythmia seen. RAW DATA: There was breast shadow seen. GATED STUDY: Resting LV ejection fraction 73 percent and stress LV ejection fraction 75 percent without any obvious wall motion abnormalities. Resting end- diastolic volume 82 mL. TID ratio 1.07, which is within normal limits. Lung/heart ratio 0.24, which is within normal limits. MYOCARDIAL PERFUSION SCAN: Stress supine and resting supine images revealed small size, mildly decreased perfusion of inferior apex and distal inferior wall, which got partially improved during stress prone images. No convincing ischemia seen. CONCLUSION: I will call this study likely a normal myocardial perfusion study with evidence of diaphragmatic tissue attenuation artifact which got partially improved during prone images. Prone images have minimally decreased perfusion of distal inferior lateral wall suggestive of some shifting tissue attenuation artifact. No wall motion abnormalities. Breast shadow was seen. There was increased subdiaphragmatic activity. Most likely we are dealing with tissue attenuation artifact. Hence, likely this is a normal myocardial perfusion study. Diminished exercise tolerance. Overall this is a low-risk myocardial perfusion study. Velma Clay - [employer]/fn/cs doc#: [id number]/job#: [id number] dd: 05/07/2020 17:24:00 dt: 05/07/2020 17:50:00 DICTATING MD/COPIES TO: Prisca Avalos MD COPIES MNE: ALEJANDRO;
== END 2020-05-07 18:38 | disposition home or self-care (01) ==
LOC: ED 17:25 → AC 17:29
PROVIDERS: Nurse Practitioner Family; Admitting Provider Internal Medicine; Emergency Provider Emergency Medicine; PCP Internal Medicine; Referring Provider Emergency Medicine; Visit Provider Internal Medicine
DX: R07.9 Chest pain, unspecified (principal); I89.0 Lymphedema, not elsewhere classified; Z20.822 Contact with and (suspected) exposure to COVID-19
CPT/HCPCS: 36415; 71045; 71275; 78452; 80053; 80061; 82550; 83036; 83690; 83735; 83880; 84439; 84443; 84484; 85025; 85610; 85730; 87635; 93005; 93010; 93017; 93306; 93971; 96360; 96372; 99282; 99284; C9803; G0378; A9502; J1650

== ENCOUNTER → 2021-04-03 09:56 | Outpatient (CLI) | payer OTHER, SELFPAY ==
[2020-05-05 19:38] VITALS: BMI 32.4
--- NOTE | 2021-04-03 | DI.RAD.S_ITS ---
PROCEDURE: XR DEXA AXIAL SKELETON INDICATIONS: Age-related osteoporosis without current pathologi COMPARISON: None. FINDINGS: This blank DEXA report has been sent in error by the PACS system. The correct and complete report will be forthcoming in 1-2 days. Thank you for your patience and understanding. Dictated by: Elsa Krishnan MD, PhD on 04/03/2021 at 17:38 Approved by: Elsa Krishnan MD, PhD on 04/03/2021 at 17:38
== END ==
PROVIDERS: PCP Internal Medicine; Referring Provider Internal Medicine; Visit Provider Internal Medicine
DX: M85.852 Other specified disorders of bone density and structure, left thigh (principal); Z82.62 Family history of osteoporosis; Z78.0 Asymptomatic menopausal state
CPT/HCPCS: 77080

== ENCOUNTER → 2025-03-08 09:24 | Outpatient (CLI) | payer MEDICARE, OTHER, SELFPAY ==
[2020-05-05 19:38] VITALS: BMI 32.4
--- NOTE | 2025-03-08 09:32 | DI.RAD.S_ITS ---
PROCEDURE: XR CHEST 2V INDICATIONS: COUGH TECHNIQUE: 2 views of the chest were acquired. COMPARISON: [facility], CR, XR CHEST 1V, 05/05/2020, 14:07. FINDINGS: Surgical changes and devices: None. Lungs and pleura: Mild generalized interstitial prominence can be seen. No focal infiltrates are seen. No pleural effusions or pneumothorax. Mediastinum: The cardiac contours are within normal limits. The aorta demonstrates calcification and tortuosity. Bones and chest wall: No suspicious bony abnormalities. Soft tissues appear unremarkable. IMPRESSION: Mild generalized interstitial prominence can be seen. Pulmonary edema is suspected, although please also consider are infection and artifact. Dictated by: Du Darnell M.D. on 03/10/2025 at 19:16 Approved by: Du Darnell M.D. on 03/10/2025 at 19:17
== END ==
PROVIDERS: PCP Internal Medicine; Referring Provider Internal Medicine; Visit Provider Internal Medicine
DX: R05.1 Acute cough (principal); R06.2 Wheezing
CPT/HCPCS: 71046